=== PATIENT | female | born 1985 | race Caucasian/White ===

== ENCOUNTER 2020-05-11 12:14 | Outpatient (REF) | payer OTHER, SELFPAY | END 2020-05-11 12:15 | disposition home or self-care (01) | LOC: HO.MDS 12:14 | PROVIDERS: PCP Internal Medicine; Visit Provider Psychiatry & Neurology Neurology | DX: G35 Multiple sclerosis (principal) | CPT/HCPCS: 96365; J2930 ==

== ENCOUNTER 2020-05-12 13:12 | Outpatient (REF) | payer OTHER, SELFPAY | END 2020-05-12 13:13 | disposition home or self-care (01) | LOC: HO.MDS 13:12 | PROVIDERS: PCP Internal Medicine; Visit Provider Psychiatry & Neurology Neurology | DX: G35 Multiple sclerosis (principal) | CPT/HCPCS: 96365; J2930 ==

== ENCOUNTER 2020-05-13 13:39 | Outpatient (REF) | payer OTHER, SELFPAY | END 2020-05-13 13:40 | disposition home or self-care (01) | LOC: HO.MDS 13:39 | PROVIDERS: PCP Internal Medicine; Visit Provider Psychiatry & Neurology Neurology | DX: G35 Multiple sclerosis (principal) | CPT/HCPCS: 96365; J2930 ==

== ENCOUNTER 2021-05-26 08:52 | Outpatient (REF) | payer OTHER, SELFPAY ==
[2021-05-26 09:14] LABS: Hematocrit 42.3 % (37.0-47.0); Hemoglobin 13.6 g/dl (12.0-16.0); Mean Corpuscular HGB Conc 32.2 g/dl (31.0-35.0); Mean Corpuscular Hemoglobin 32.4 pg (27.0-33.0); Mean Corpuscular Volume 100.7 fL (80.0-98.0); Mean Platelet Volume 8.6 fL (9.4-12.3); Platelet Count 362 X10*3/uL (160-400); White Blood Count 8.7 X10*3/uL (4.8-10.8)
[2021-05-26 09:37] LABS: Alanine Aminotransferase 11 U/L (0-31); Albumin Level 4.4 g/dL (3.5-5.0); Alkaline Phosphatase 49 U/L (39-117); Aspartate Amino Transferase 11 U/L (5-31); Bilirubin Direct 0.2 mg/dL (0.0-0.5); Bilirubin Total 0.5 mg/dL (0.0-1.0); Total Protein 7.1 g/dL (6.5-8.0)
== END 2021-05-26 08:53 | disposition home or self-care (01) ==
LOC: HO.LAB 08:52
PROVIDERS: PCP Internal Medicine; Visit Provider Psychiatry & Neurology Neurology
DX: G35 Multiple sclerosis (principal)
CPT/HCPCS: 36415; 80076; 85027

== ENCOUNTER 2021-08-27 08:58 | Outpatient (REF) | payer OTHER, SELFPAY ==
[2021-08-27 09:21] LABS: MANUAL DIFF FLAG NO
[2021-08-27 09:47] LABS: Basophils Absolute Auto 0.1 X10*3/uL (0.0-0.2); Basophils Percent Auto 0.5 % (0-2); Eosinophils Absolute Auto 0.1 X10*3/uL (0.0-0.4); Eosinophils Percent Auto 0.9 % (0-4); Hematocrit 39.7 % (37.0-47.0); Hemoglobin 12.5 g/dl (12.0-16.0); Imm Gran Abs Auto 0.03 X10*3/uL (0.00-0.03); Imm Gran Pct Auto 0.3 % (0.0-0.4); Lymphocytes Absolute Auto 1.7 X10*3/uL (1.2-4.9); Lymphocytes Percent Auto 17.2 % (20-40); Mean Corpuscular HGB Conc 31.5 g/dl (31.0-35.0); Mean Corpuscular Hemoglobin 31.3 pg (27.0-33.0); Mean Corpuscular Volume 99.5 fL (80.0-98.0); Mean Platelet Volume 8.5 fL (9.4-12.3); Monocytes Absolute Auto 0.7 X10*3/uL (0.1-1.2); Monocytes Percent Auto 6.6 % (2-11); Neutrophils Absolute Auto 7.5 x10*3/uL (2.0-8.3); Neutrophils Percent Auto 74.5 % (45-73); Platelet Count 455 X10*3/uL (160-400); Red Blood Count 3.99 X10*6/uL (4.20-5.50); Red Cell Distribution Width 13.5 % (11.0-16.0)
[2021-08-27 10:24] LABS: Alanine Aminotransferase 13 U/L (0-31); Albumin Level 4.5 g/dL (3.5-5.0); Alkaline Phosphatase 59 U/L (39-117); Anion Gap 15 (12-20); Aspartate Amino Transferase 13 U/L (5-31); Bilirubin Direct < 0.2 mg/dL (0.0-0.5); Bilirubin Total 0.3 mg/dL (0.0-1.0); Blood Urea Nitrogen 12 mg/dL (9-16); Calcium 10.3 mg/dL (8.4-10.2); Carbon Dioxide 25 mmol/L (22-29); Chloride 105 mmol/L (96-108); Estimated Glomerular Filt Rate > 60; Glucose Random 88 mg/dL (60-115); Potassium 4.6 mmol/L (3.3-5.1); Sodium 140 mmol/L (135-145); Total Protein 7.2 g/dL (6.5-8.0)
[2021-09-03 01:20] LABS: JCV Antibody POSITIVE; JCV Index Value 2.05
== END 2021-08-27 08:59 | disposition home or self-care (01) ==
LOC: HO.LAB 08:58
PROVIDERS: PCP Internal Medicine; Visit Provider Psychiatry & Neurology Neurology
DX: G35 Multiple sclerosis (principal)
CPT/HCPCS: 36415; 80048; 80076; 85025; 86711

== ENCOUNTER 2021-09-01 11:33 | Outpatient (REF) | payer OTHER, SELFPAY | END 2021-09-01 11:34 | disposition home or self-care (01) | LOC: HO.MDS 11:33 | PROVIDERS: PCP Internal Medicine; Visit Provider Psychiatry & Neurology Neurology | DX: G35 Multiple sclerosis (principal) | CPT/HCPCS: 96365; J2930 ==

== ENCOUNTER 2021-09-02 11:20 | Outpatient (REF) | payer OTHER, SELFPAY | END 2021-09-02 11:21 | disposition home or self-care (01) | LOC: HO.MDS 11:20 | PROVIDERS: PCP Internal Medicine; Visit Provider Psychiatry & Neurology Neurology | DX: G35 Multiple sclerosis (principal) | CPT/HCPCS: 96365; J2930 ==

== ENCOUNTER 2021-09-03 11:23 | Outpatient (REF) | payer OTHER, SELFPAY | END 2021-09-03 11:24 | disposition home or self-care (01) | LOC: HO.MDS 11:23 | PROVIDERS: PCP Internal Medicine; Visit Provider Psychiatry & Neurology Neurology | DX: G35 Multiple sclerosis (principal) | CPT/HCPCS: 96365; J2930 ==

== ENCOUNTER 2021-09-06 08:39 | Outpatient (REF) | payer OTHER, SELFPAY ==
--- NOTE | ~2021-09-06 | MR_ITS ---
MR BRAIN WITHOUT AND WITH CONTRAST CLINICAL INFORMATION: Multiple sclerosis. COMPARISON: None available. TECHNIQUE: Multiplanar, multisequence MRI of the brain was obtained before and after the intravenous administration of 10 mL of Gadavist. FINDINGS: Extensive T2 signal hyperintense lesional burden throughout the supratentorial periventricular white matter, subcortical white matter, the corpus callosum, and the infratentorial brain in keeping with the sequela of demyelinating disease. A slightly expansile T2 signal hyperintense lesion within the right middle cerebellar peduncle measuring 8 mm exhibits faint peripheral enhancement, likely a active demyelinating focus. There is mild global cerebral volume loss. Multiple chronic low T1 signal intensity lesions. There is no hydrocephalus, extra-axial surface collection, or herniation. The major flow voids at the skull base are preserved. There is no acute infarct on diffusion-weighted imaging. There is no intracranial hemorrhage on the gradient recalled echo acquisition. The cerebellar tonsils are normally positioned. The craniocervical junction is normal. Osseous marrow signal intensity is homogenous. The visualized soft tissues are unremarkable. Right greater than left mastoid effusions. MR/MR head/brain wo/w con IMPRESSION: - Extensive T2 signal hyperintense lesional burden throughout the supratentorial periventricular white matter, subcortical white matter, the corpus callosum, and the infratentorial brain in keeping with the sequela of demyelinating disease. - A slightly expansile T2 signal hyperintense lesion within the right middle cerebellar peduncle measuring 8 mm exhibits faint peripheral enhancement, likely a active demyelinating focus. - There is mild global cerebral volume loss.
== END 2021-09-06 08:40 | disposition home or self-care (01) ==
LOC: HO.MRI 08:39
PROVIDERS: Visit Provider Psychiatry & Neurology Neurology
DX: G35 Multiple sclerosis (principal)
CPT/HCPCS: 70553; A9585

== ENCOUNTER 2022-02-17 08:16 | Outpatient (REF) | payer OTHER, SELFPAY ==
[2022-02-17 09:04] LABS: Alanine Aminotransferase 18 U/L (0-31); Albumin Level 4.2 g/dL (3.5-5.0); Alkaline Phosphatase 70 U/L (39-117); Aspartate Amino Transferase 14 U/L (5-31); Bilirubin Direct < 0.2 mg/dL (0.0-0.5); Bilirubin Total 0.2 mg/dL (0.0-1.0); Total Protein 6.9 g/dL (6.5-8.0)
== END 2022-02-17 08:17 | disposition home or self-care (01) ==
LOC: HO.LAB 08:16
PROVIDERS: PCP Internal Medicine; Visit Provider Psychiatry & Neurology Neurology
DX: G35 Multiple sclerosis (principal)
CPT/HCPCS: 36415; 80076

== ENCOUNTER 2022-07-28 08:04 | Outpatient (REF) | payer OTHER, SELFPAY ==
[2022-07-28 09:24] LABS: Alanine Aminotransferase 20 U/L (0-31); Albumin Level 4.3 g/dL (3.5-5.0); Alkaline Phosphatase 62 U/L (39-117); Aspartate Amino Transferase 15 U/L (5-31); Bilirubin Direct < 0.2 mg/dL (0.0-0.5); Bilirubin Total 0.3 mg/dL (0.0-1.0); Total Protein 6.8 g/dL (6.5-8.0)
[2022-08-04 03:18] LABS: JCV Antibody POSITIVE; JCV Index Value 1.84
== END 2022-07-28 08:05 | disposition home or self-care (01) ==
LOC: HO.LAB 08:04
PROVIDERS: PCP Internal Medicine; Visit Provider Psychiatry & Neurology Neurology
DX: G35 Multiple sclerosis (principal)
CPT/HCPCS: 36415; 80076; 86711

== ENCOUNTER 2022-08-01 08:04 | Outpatient (REF) | payer OTHER, SELFPAY ==
--- NOTE | ~2022-08-01 | MR_ITS ---
EXAMINATION: MR BRAIN WITHOUT AND WITH CONTRAST CLINICAL INFORMATION: Multiple sclerosis. COMPARISON: Brain MRI from 09/06/2021. TECHNIQUE: MRI of the brain was obtained using routine sequences without and with contrast using MS protocol following the administration of 10 mL of Gadavist intravenous contrast. This included a sagittal T2 FLAIR sequence. FINDINGS: There are multiple T2/FLAIR hyperintense lesions consistent with an underlying diagnosis of demyelination. This includes lesions within the subcortical, deep white matter, periventricular, callosal, brainstem, and cerebellar distributions. New Lesions: None. Enhancing Lesions: None. Restricted Diffusion: None. T1 Black Holes: Approximately 10. Volume Loss: Mild to moderate. Additional Findings: No evidence of edema or expansion of the optic nerves. No focal restricted diffusion is seen to suggest acute or subacute cerebral ischemia. No intracranial mass, intra-axial blood products, midline shift, or extra-axial collection is demonstrated. Proportional prominence of the ventricles and sulcal spaces without evidence of obstructive hydrocephalus. Normal arterial and venous vascular flow voids are present. No signal abnormalities within the superior sagittal or transverse sinuses. Mild mucosal thickening of the paranasal sinuses. Mild rightward nasal septal deviation. Small bilateral mastoid effusions. MR/MR head/brain wo/w con IMPRESSION: Stable moderate supratentorial and infratentorial white matter disease consistent with an underlying diagnosis of demyelination in the appropriate clinical setting. No evidence of disease progression.
== END 2022-08-01 08:05 | disposition home or self-care (01) ==
LOC: HO.MRI 08:04
PROVIDERS: PCP Internal Medicine; Visit Provider Psychiatry & Neurology Neurology
DX: G35 Multiple sclerosis (principal)
CPT/HCPCS: 70553; A9585

== ENCOUNTER 2023-01-18 10:27 | Outpatient (REF) | payer OTHER, SELFPAY ==
[2023-01-18 12:08] LABS: Alanine Aminotransferase 17 U/L (0-31); Albumin Level 4.4 g/dL (3.5-5.0); Alkaline Phosphatase 65 U/L (39-117); Aspartate Amino Transferase 16 U/L (5-31); Bilirubin Direct < 0.2 mg/dL (0.0-0.5); Bilirubin Total 0.2 mg/dL (0.0-1.0); Total Protein 7.3 g/dL (6.5-8.0)
== END 2023-01-18 10:28 | disposition home or self-care (01) ==
LOC: HO.LAB 10:27
PROVIDERS: PCP Internal Medicine; Visit Provider Psychiatry & Neurology Neurology
DX: G35 Multiple sclerosis (principal)
CPT/HCPCS: 36415; 80076

== ENCOUNTER 2023-04-17 08:26 | Outpatient (REF) | payer OTHER, SELFPAY ==
[2023-04-17 09:54] LABS: Alanine Aminotransferase 17 U/L (0-31); Albumin Level 4.2 g/dL (3.5-5.0); Alkaline Phosphatase 61 U/L (39-117); Aspartate Amino Transferase 14 U/L (5-31); Bilirubin Direct 0.1 mg/dL (0.0-0.5); Bilirubin Total 0.3 mg/dL (0.0-1.0); Total Protein 7.1 g/dL (6.5-8.0)
== END 2023-04-17 08:27 | disposition home or self-care (01) ==
LOC: HO.LAB 08:26
PROVIDERS: PCP Internal Medicine; Visit Provider Psychiatry & Neurology Neurology
DX: G35 Multiple sclerosis (principal)
CPT/HCPCS: 36415; 80076

== ENCOUNTER 2023-07-10 08:05 | Outpatient (REF) | payer SELFPAY ==
[2023-07-10 09:45] LABS: Alanine Aminotransferase 19 U/L (0-31); Albumin Level 4.2 g/dL (3.5-5.0); Alkaline Phosphatase 59 U/L (39-117); Aspartate Amino Transferase 15 U/L (5-31); Bilirubin Direct 0.1 mg/dL (0.0-0.5); Bilirubin Total 0.3 mg/dL (0.0-1.0)
== END 2023-07-10 08:06 | disposition home or self-care (01) ==
LOC: HO.LAB 08:05
PROVIDERS: PCP Internal Medicine; Visit Provider Psychiatry & Neurology Neurology
DX: G35 Multiple sclerosis (principal)
CPT/HCPCS: 36415; 80076

== ENCOUNTER 2023-10-16 09:48 | Outpatient (REF) | payer OTHER, SELFPAY ==
[2023-10-16 11:13] LABS: Alanine Aminotransferase 61 U/L (0-31); Albumin Level 4.2 g/dL (3.5-5.0); Alkaline Phosphatase 59 U/L (39-117); Aspartate Amino Transferase 29 U/L (5-31); Bilirubin Direct 0.1 mg/dL (0.0-0.5); Bilirubin Total 0.4 mg/dL (0.0-1.0)
== END 2023-10-16 09:49 | disposition home or self-care (01) ==
LOC: HO.LAB 09:48
PROVIDERS: Visit Provider Psychiatry & Neurology Neurology
DX: G35 Multiple sclerosis (principal)
CPT/HCPCS: 36415; 80076

== ENCOUNTER 2024-03-11 09:25 | Outpatient (REF) | payer OTHER, SELFPAY ==
[2024-03-11 09:43] LABS: MANUAL DIFF FLAG NO
[2024-03-11 10:14] LABS: Basophils Absolute Auto 0.1 X10*3/uL (0.0-0.2); Basophils Percent Auto 0.8 % (0-2); Eosinophils Absolute Auto 0.2 X10*3/uL (0.0-0.4); Eosinophils Percent Auto 1.4 % (0-4); Hematocrit 43.5 % (37.0-47.0); Imm Gran Abs Auto 0.08 X10*3/uL (0.00-0.03); Imm Gran Pct Auto 0.7 % (0.0-0.4); Lymphocytes Percent Auto 42.3 % (20-40); Mean Corpuscular HGB Conc 32.2 g/dl (31.0-35.0); Mean Corpuscular Hemoglobin 31.7 pg (27.0-33.0); Mean Corpuscular Volume 98.6 fL (80.0-98.0); Mean Platelet Volume 9.3 fL (9.4-12.3); Monocytes Absolute Auto 0.8 X10*3/uL (0.1-1.2); Monocytes Percent Auto 7.1 % (2-11); Neutrophils Absolute Auto 5.6 x10*3/uL (2.0-8.3); Neutrophils Percent Auto 47.7 % (45-73); Platelet Count 270 X10*3/uL (160-400); Red Blood Count 4.41 X10*6/uL (4.20-5.50); Red Cell Distribution Width 13.5 % (11.0-16.0); White Blood Count 11.8 X10*3/uL (4.8-10.8)
[2024-03-11 10:25] LABS: NRBC Pct Auto 1.8 /100WBC (0.0-0.2)
== END 2024-03-11 09:26 | disposition home or self-care (01) ==
LOC: HO.LAB 09:25
PROVIDERS: PCP Internal Medicine; Visit Provider Psychiatry & Neurology Neurology
DX: G35 Multiple sclerosis (principal)
CPT/HCPCS: 36415; 85025

== ENCOUNTER 2024-06-24 08:23 | Outpatient (REF) | payer OTHER, SELFPAY ==
[2024-06-24 08:51] LABS: Basophils Absolute Auto 0.1 X10*3/uL (0.0-0.2); Basophils Percent Auto 0.5 % (0-2); Eosinophils Absolute Auto 0.2 X10*3/uL (0.0-0.4); Eosinophils Percent Auto 1.3 % (0-4); Hematocrit 43.2 % (37.0-47.0); Hemoglobin 14.2 g/dl (12.0-16.0); Imm Gran Abs Auto 0.07 X10*3/uL (0.00-0.03); Imm Gran Pct Auto 0.6 % (0.0-0.4); Lymphocytes Absolute Auto 4.6 X10*3/uL (1.2-4.9); Lymphocytes Percent Auto 40.2 % (20-40); MANUAL DIFF FLAG SCAN; Mean Corpuscular HGB Conc 32.9 g/dl (31.0-35.0); Mean Corpuscular Hemoglobin 32.6 pg (27.0-33.0); Mean Corpuscular Volume 99.1 fL (80.0-98.0); Mean Platelet Volume 9.3 fL (9.4-12.3); Monocytes Absolute Auto 0.6 X10*3/uL (0.1-1.2); Monocytes Percent Auto 5.5 % (2-11); Neutrophils Percent Auto 51.9 % (45-73); Platelet Count 242 X10*3/uL (160-400); Red Blood Count 4.36 X10*6/uL (4.20-5.50); Red Cell Distribution Width 13.8 % (11.0-16.0); SCAN SMEAR FLAG 1; White Blood Count 11.5 X10*3/uL (4.8-10.8)
[2024-06-24 08:56] LABS: NRBC Pct Auto 1.4 /100WBC (0.0-0.2)
[2024-06-24 09:15] LABS: SLIDE REVIEW VERIFIED
[2024-06-24 09:55] LABS: Alanine Aminotransferase 42 U/L (0-31); Albumin Level 4.2 g/dL (3.5-5.0); Alkaline Phosphatase 59 U/L (39-117); Aspartate Amino Transferase 21 U/L (5-31); Bilirubin Direct 0.1 mg/dL (0.0-0.5); Bilirubin Total 0.3 mg/dL (0.0-1.0); Total Protein 7.1 g/dL (6.5-8.0)
--- OUTSIDE RECORDS SUMMARY | 2024-06-24 12:42 | XMS_ITS | Clinical Summary ---
Author Organization [address] [facility] Address [address] [place] [address] Phone Care Team Providers Care Sand Digger Name Role Phone Nathan Flores MD Primary Care Provider [phone] Allergies Active Allergy Reactions Criticality Noted Date Comments Acetaminophen-Codeine Other Medium 10/22/2019 Divalproex Flushing 09/08/2010 Dog Dander Runny nose 08/09/2007 Other Runny nose 08/09/2007 Risperidone 12/30/2021 Medications Medication Sig Dispensed Refills Start Date End Date Status natalizumab (Tysabri) 300 mg/15 mL injection Infuse 1 mL (20 mg total) into a venous catheter. 12/30/2021 Active oxyBUTYnin XL (DITROPAN-XL) 10 mg 24 hr tablet Take 1 tablet (10 mg total) by mouth 1 (one) time each day. 08/26/2022 Active ibuprofen (ADVIL,MOTRIN) 800 mg tablet Take 1 tablet (800 mg total) by mouth. 12/26/2022 Active nystatin (MYCOSTATIN) 100,000 unit/gram powder Apply topically. Apply to affected area four times daily for 10 days Active atorvastatin (LIPITOR) 10 mg tablet Take 1 tablet (10 mg total) by mouth 1 (one) time each day. 90 tablet 1 05/07/2024 Active cyclobenzaprine (FLEXERIL) 10 mg tablet Take 1 tablet (10 mg total) by mouth at bedtime as needed for muscle spasms. 90 tablet 1 05/07/2024 Active clotrimazole (LOTRIMIN) 1 % cream Apply to skin and toenails daily for 12 weeks 30 g 2 05/07/2024 Active ketoconazole (NIZORAL) 2 % shampoo Apply topically 1 (one) time per week. 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 Chronic for about 5 years. UA urine culture and renal function normal. History of MS and follows with neurology. Patient to follow-up with neurology. If neurology feels unrelated to MS will consider urology consult. Multiple sclerosis 08/02/2019 Overview (02/27/2024): Follows with neurology ([facility]) on 6 mth basis Vitamin D deficiency 05/14/2019 Obese 05/09/2014 Bipolar affective disorder 09/08/2010 Overview (02/27/2024): On meds Had ECT with good resuts Encounters Date Type Department Care Team Description 06/13/2024 Telephone Adult Medicine [address] [phone] Nalini Hale PA fyi (Pt is calling back wonderint what is going on with her medication she has yet to hear anything ) 05/13/2024 Telephone Adult Medicine [address] [phone] Nathan Flores MD Medication Problem 05/07/2024 9:30 AM EST Office Visit Adult Medicine [address] [phone] Nalini Hale PA Multiple sclerosis ([facility]) (Primary Dx); Hypercholesterolemia; Chronic low back pain, unspecified back pain laterality, unspecified whether sciatica present; Scalp psoriasis; Tinea pedis, unspecified laterality 04/04/2024 2:00 PM EST Office Visit Orthopedic Surgery [address] [phone] Joe Haynes DPM Dermatophytosis of nail (Primary Dx); Ingrowing nail from Last 3 Months Immunizations Name Administration Dates Next Due HPV, Quadrivalent 03/08/2007 Influenza Quadravalent, MDCK , 0.5ml, preservative free (Flucelvax) 6mo and older 05/13/2019 PPD Test 05/13/2019 Tdap Tetanus diptheria acell ular pertussis (Boostrix; Adacel) 7yo and older 05/13/2019,02/15/2007 Surgical History Surgery Date Site/Laterality Comments OTHER SURGICAL HISTORY PROCEDURE: DENIES PREVIOUS SURGERY Medical History Medical History Date Comments Other specified personal his tory presenting hazards to health(V15.89) DX:Other specifie d personal history presenting hazards to health(V15.89); COMMENT: destiny 1 Bipolar affective disorder ([facility]) DX:Bipolar affective disorder (HCC); COMMENT: hosptialized in 2010 Multiple sclerosis ([facility]) 08/02/2019 DX: Multiple sclerosis ([facility]); COMMENT: Follows with neurology ([facility]) on 6 mth basis Tubular adenoma of colon DX:Tubu lar adenoma of colon; COMMENT: Mother noted to have several and needed colon resection at 49 Hypercholesterolemia 05/07/2024 Family History Medical History Relation Name Comments Breast cancer Aunt Multiple sclerosis Aunt Hypertension Maternal Grandmother Diabete s Colon cancer Mother mother had pr e-cancer but had colectomy Relation Name Status Comments Aunt Alive pat Maternal Grandmother Mother Alive Social History Tobacco Use Types Packs/Day Years Used Date Smoking Tobacco: Every Day Cigarettes Smokeless Tobacco: Never Tobacco Cessation:Ready to Q uit: Not Asked; Counseling Given: Not Answered Alcohol Use Standard Drinks/Week Comments Not Currently 0 (1 standard drink = 0.6 oz pur e alcohol) Sex and Gender Information Value Date Recorded Sex Assigned at Not on file Gender Identity Not on file Sexual Orientation Not on file Job Start Date Occupation Industry Not on file Not on file Not on file Obstetrics History Last Filed Vital Signs Vital Sign Reading Time Taken Comments Blood Pressure 109/85 06/12/2024 10:45 AM EST Pulse 94 06/12/2024 10:45 AM EST Temperature 36.3 ??C (97.3 ??F) 06/12/2024 10:[address] Respiratory Rate 18 06/12/2024 10:45 AM EST Oxygen Saturation 98% 05/07/2024 9:46 AM EST Inhaled Oxygen Concentration - - Weight 95.7 kg (211 lb) 06/12/2024 10:45 AM EST Height 165.1 cm (5' 5 ) 05/07/2024 9:46 AM EST Body Mass Index 35.11 05/07/2024 9:46 AM EST Plan of Treatment Upcoming Encounters Date Type Department Care Team (Late st Contact Info) Description 07/08/2024 2:00 PM EST Office Visit Orthopedic Surgery - [place] [phone] [phone] Joe Haynes, DPM [address] [address] 11/18/2024 9:30 AM EDT Office Visit Adult Medicine [address] [phone] Nathan Flores MD [address] [place] [phone] Health Maintenance Due Date Last Done Comments Pneumococcal Vaccine: Pediatrics (0 to 5 Years) and At-Risk Patients (6 to 64 Years) (1 of 2 - PCV) 1990 Hepatitis A Vaccines (1 of 2 - Risk 2-dose series) 10/30/2003 Hepatitis B Vaccines (1 of 3 - 19+ 3-dose series) 10/30/2003 HPV Vaccines (2 - 3-dose series) 04/05/2007 03/08/2007 Depression Screening 05/07/2022 HIV Screening 05/07/2022 Hepatitis C Screening 05/07/2022 Medicare Annual Wellness Visit 05/07/2022 Social Influencers of Health Screening 05/07/2022 COVID-19 Vaccine (1 - 2023-2 5 season) 2024 Influenza Vaccine (#1) 2024 05/13/2019 Colorectal Cancer Screening: Colonoscopy 05/05/2025 Cervical Cancer Screening: HPV 08/17/2027 08/16/2022 Cholesterol Screening (Lipid Panel) 11/01/2028 11/02/2023, 11/02/2023 DTaP,Tdap,and Td Vaccines (3 - Td or Tdap) 05/13/2029 05/13/2019, 02/15/2007 HIB Vaccines Aged Out No longer eligi ble based on patient's age to complete this topic IPV Vaccines Aged Out No longer eligi ble based on patient's age to complete this topic MMR Vaccines Aged Out No longer eligi ble based on patient's age to complete this topic Meningococcal ACWY Vaccine Aged Out N o longer eligible based on patient's age to complete this topic RSV Immunization Patients Under 20 months Aged Out No longer eligible b ased on patient's age to complete this topic Varicella Vaccines Aged Out No longer eligible based on patient's age to complete this topic Procedures Procedure Name Priority Date/Time Associated Diagnosis Comments LIPID PANEL Routine 11/02/2023 HPV Routine 08/16/2022 from Last 3 Months or Most Recently Relevant to Health Maintenance Results * (ABNORMAL) Lipid panel (11/02/2023) [facility] LDL/HDL Ratio 5(A) 0 - 4 Triglycerides 101 0 - 150 mg/dL Cholesterol 163 0 - 200 mg/dL HDL 36(A) 40 mg/dL LDL Cholesterol 107(A) 0 - 100 mg/dL Blood Venous blood specimen / Unknown Historical Provider LAB BLOOD ORDERAB [facility] * Cervical Cancer Screening: HPV (08/16/2022) Pathologist [facility] Cervical Cancer Screening: HPV Negative abstracted Historical Provider MD SIMI Hooks from Last 3 Months or Most Recently Relevant to Health Maintenance Advance Directives Documents on File Type Date Recorded 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
--- OUTSIDE RECORDS SUMMARY | 2024-06-24 12:42 | XMS_ITS | Encounter Summary ---
Author Organization [facility] Address [id number] [place] [phone] Care Team Providers Care Group Exercise Manager Name Role Phone Nathan Flores MD Primary Care Provider [phone] Reason for Visit * Reason Onset Date Comments fyi 06/13/2024 Pt is calling ba serena wonderint what is going on with her medication she has yet to hear anything Encounter Details Date Type Department Care Team (Late st Contact Info) Description 06/13/2024 Telephone Adult Medicine [address] [phone] Nalini Hale PA [address] [place] [phone] (Pt is calling back wonderint what is going on with her medication she has yet to hear anything ) Social History Tobacco Use Types Packs/Day Years Used Date Smoking Tobacco: Every Day Cigarettes Smokeless Tobacco: Never Alcohol Use Standard Drinks/Week Comments Not Currently 0 (1 standard drink = 0.6 oz pur e alcohol) Sex and Gender Information Value Date Recorded Sex Assigned at Not on file Gender Identity Not on file Sexual Orientation Not on file Job Start Date Occupation Industry Not on file Not on file Not on file documented as of this encounter Progress Notes * Anna Pitt - 06/13/2024 3:14 PM EST Patient is calling to let Nalini MCCRACKEN know that her [employer] is requiring a prior auth for medication methocarbamoL. States [employer] is faxing over information to Nalini's attention. Patient just wanted to make Nalini aware that this information would be coming to her. documented in this encounter Plan of Treatment Upcoming Encounters Date Type Department Care Team (Late st Contact Info) Description 07/08/2024 2:00 PM EST Office Visit Orthopedic Surgery - [place] [address] [phone] Joe Haynes, DPM [address] [address] 11/18/2024 9:30 AM EDT Office Visit Adult Medicine [address] [phone] Nathan Flores MD [address] [place] [address] documented as of this encounter Visit Diagnoses Not on filedocumented in this encounter Care Teams Group Exercise Manager Relationship Specialty Start Date End Date Nathan Flores MD [address] [place] [phone] PCP - General Internal Medicine 01/30/07 documented as of this encounter
--- OUTSIDE RECORDS SUMMARY | 2024-06-24 12:42 | XMS_ITS | Encounter Summary ---
Author Organization [facility] Address [address] [place] [phone] Care Team Providers Care Material Handling Equipment Stevedore Name Role Phone Nathan Flores MD Primary Care Provider [phone] Reason for Visit * Reason Onset Date Comments Medication Problem 05/13/2024 Encounter Details Date Type Department Care Team ([facility] st Contact Info) Description 05/13/2024 Telephone Adult Medicine [facility] [address] [place] [phone] Nathan Flores MD [address] [place] [phone] Medication Problem Social History Tobacco Use Types Packs/Day Years [...] as of this encounter Progress Notes * Joy Díaz RN - 06/11/2024 12:54 PM EST Spoke with pt. And pt.'s mother who is on verbal release. Mother says pt. Has had this mid back pain x 1 1/2 years and PCP is aware. She is on methocarbamol which works well . Her insurance sent letter letting her know they are no longer covering this medication. She was prescribed flexeril which does not work as well . She has gone back to Robaxin but will need another rx and would like to request this medication as necessary due the other medication not working. Pt. Has tried other medications none of which work. Appointment for tomorrow to re- evaluate back pain and possible PA * Verenice Clinton - 06/11/2024 12:02 PM EST Patient was having this pain over a month ago, no further communication was regarding this request.Please contact patient to see if they remain with discomfort and still looking for a medication change may need appointment if pain is persistent. * Sammi Bobo - 05/13/2024 8:54 AM EST Medication Problem: What is the name of the medication patient is having a problem with?: cyclobenzaprine What is the problem?: not working for back pain- asking for methocarbaonla Who is calling about the problem? : The patient Is this a NEW medication?: yes How long has the patient been taking this medication? N/a Who prescribed this medication for the patient? Nalini Hale Who is patients PCP?: Nathan Flores MD Payor: [facility] MED[facility] / Plan: [facility] ONE CARE / Product Type: *No Product type* / documented in this encounter Plan of Treatment Upcoming Encounters Date Type Department Care Team (Late st Contact Info) Description 07/08/2024 2:00 PM EST Office Visit Orthopedic Surgery - [place] [address] [phone] Joe Haynes DPM [address] [phone] 11/18/2024 9:30 AM EDT Office Visit Adult Medicine [address] [phone] Nathan Flores MD [address] [place] [phone] documented as of this encounter Visit Diagnoses Not on filedocumented in this encounter Care Teams Material Handling Equipment Stevedore Relationship Specialty Start Date End Date Nathan Flores MD [address] [place] [phone] PCP - General Internal Medicine 01/30/07 documented as of this encounter
[2024-06-28 04:18] LABS: JCV Antibody POSITIVE; JCV Index Value 2.27 index
== END 2024-06-24 08:24 | disposition home or self-care (01) ==
LOC: HO.LAB 08:23
PROVIDERS: Psychiatry & Neurology Neurology; PCP Internal Medicine; Visit Provider Internal Medicine
DX: G35 Multiple sclerosis (principal)
CPT/HCPCS: 36415; 80076; 85025; 86711

== ENCOUNTER 2024-10-01 10:28 | Outpatient (REF) | payer OTHER, SELFPAY ==
--- NOTE | ~2024-10-01 | MR_ITS ---
EXAMINATION: MR BRAIN WITHOUT AND WITH CONTRAST CLINICAL INFORMATION: Multiple sclerosis. COMPARISON: August 01, 2022. TECHNIQUE: Multiplanar, multisequence MRI of the brain was obtained before and after the intravenous administration of 10 mL gadolinium based (Gadavist) without reported immediate complications. FINDINGS: Limited by patient's motion artifact. No restricted diffusion. There is T2 shortening through involving the perpendicular oriented to the corpus callosum deep periventricular white matter hyperintense T2 FLAIR signal abnormalities at the supratentorial compartment both hemispheres. There is hyperintense T2 FLAIR nonenhancing no restricted diffusion within the right cerebellar peduncle, dorsal camila/quadrigeminal plate/mid brain and left midline ventral camila. There is hyperintense T2 FLAIR signal at the entry zone of the right trigeminal cranial nerves. No abnormal enhancement within the intra-axial or the extra-axial compartment of the cranium or within the white matter plaques. Multifocal hyperintense T2 signal abnormalities within the right cerebellum the cerebellar peduncles. Prominence of the extra-axial CSF spaces cerebral sulci and ventricles. Flow-void signal within the main cerebral vessels is normal. Sellar/suprasellar region demonstrated no gross masses. Craniocervical junction is intact and normal. MR/MR head/brain wo/w con IMPRESSION: Extensive nonenhancing no restricted diffusion demyelinating plaques involving the supratentorial and infratentorial compartment with similar morphology and distribution pattern since 2022. Electronically signed by: Epifanio Beth MD 10/01/2024 01:37 PM EDT
[2024-10-01] MEDS: gadobutroL 10 ML VIAL IVPUSH (11:53)
--- OUTSIDE RECORDS SUMMARY | 2024-10-01 12:04 | XMS_ITS | Clinical Summary ---
Author Organization [facility] Address [address] [place] [address] Phone Care Team Providers Care Geospatial Technician Name Role Phone Nathan Flores MD Primary Care Provider [phone] Allergies Active Allergy Reactions Criticality Noted Date Comments Acetaminophen-Codeine Other Medium 10/22/2019 Divalproex Flushing 09/08/2010 Dog Dander Runny nose 08/09/2007 Other Runny nose 08/09/2007 Risperidone 12/30/2021 Medications natalizumab (Tysabri) 300 mg/15 mL injection Infuse 1 mL (20 mg total) into a venous catheter. 12/31/19 22 Active oxyBUTYnin XL (DITROPAN-XL) 10 mg 24 hr tablet Take 1 tablet (10 mg total) by mouth 1 (one) time each day. 08/27/19 23 Active ibuprofen (ADVIL,MOTRIN) 800 mg tablet Take 1 tablet (800 mg total) by mouth. 12/27/19 23 Active nystatin (MYCOSTATIN) 100,000 unit/gram powder Apply topically. Apply to affected area four times daily for 10 days Active atorvastatin (LIPITOR) 10 mg tablet Take 1 tablet (10 mg total) by mouth 1 (one) time each day. 90 tablet 1 05/07/20 24 Active clotrimazole (LOTRIMIN) 1 % cream Apply to skin and toenails daily for 12 weeks 30 g 2 05/07/20 24 Active ketoconazole (NIZORAL) 2 % shampoo Apply topically 1 (one) time per week. Apply to damp skin, lather, leave on 5 minutes, and rinse 120 mL 2 05/07/20 24 Active methocarbamoL (ROBAXIN) 750 mg tablet Take 1 tablet (750 mg total) by mouth at bedtime as needed for muscle spasms. 90 tablet 09/05/19 25 Active methocarbamoL (ROBAXIN) 750 mg tabletIndicatio ns:Chronic low back pain, unspecified back pain laterality, unspecified whether sciatica present Take 1 tablet (750 mg total) by mouth 3 (three) times a day if needed for muscle spasms. 90 each 09/06/19 25 Active cyclobenzaprine (FLEXERIL) 10 mg tablet Take 1 tablet (10 mg total) by mouth 3 (three) times a day if needed for muscle spasms. 30 tablet 09/26/19 25 025 Active methocarbamoL (ROBAXIN) 750 mg tablet Take 1 tablet (750 mg total) by mouth 3 (three) times a day if needed for muscle spasms. 90 each 07/05/19 25 025 Discontinued Active Problems Problem Noted Date Diagnosed Date Hypercholesterolemia 05/07/2024 Chronic low back pain 05/07/2024 Scalp psoriasis 05/07/2024 Tubular adenoma of colon 02/27/2024 Overview (02/27/2024): Mother noted to have several and needed colon resection at 48 High grade squamous intraepi thelial lesion (HGSIL), grade 3 DESTINY, on biopsy of cervix 10/27/2021 Overview (02/27/2024): Last Assessment & Plan: 08/10/2021 Papsmear HSIL pos / neg 16/45 09/09/21 colpo bx at 11 at least [...] MS will consider urology consult. Multiple sclerosis ([facility] V24, [facility] V28) Overview (02/27/2024): Follows with neurology ([facility]) on 6 mth basis Vitamin D deficiency 05/14/2019 Obese 05/09/2014 Bipolar affective disorder ([facility] V24, [facility] V28) 09/08/2010 Overview (02/27/2024): On meds Had ECT with good resuts Encounters Date Type Department Care Team Description 09/23/2024 Telephone Adult Medicine [address] [phone] Nathan Flores MD Medication Problem 08/09/2024 Telephone Adult [address] [phone] Nathan Flores MD Medication Problem 07/30/2024 Telephone Adult Medicine [address] [phone] Monica Ocampo LPN Fitting for DME (Faxed form from Gianluca ) 07/30/2024 Telephone Adult [address] [phone] Nalini Hale PA Med Refill 07/25/[address] [phone] Nathan Flores MD 07/25/[address] [phone] Nathan Flores MD Forms/questionnaires 07/08/2024 2:00 PM EST Office Visit Orthopedic Surgery - [place] [address] [place] [phone] Joe Haynes, DPM Dermatophytosis of nail (Primary Dx); Ingrowing [...] health(V15.89); COMMENT: destiny 1 Bipolar affective disorder ( [facility] V24, [facility] V28) DX:Bipolar affective disorde r ([facility]); COMMENT: hosptialized in 2010 Multiple sclerosis ([facility] V24, [facility] V28) 08/02/2019 DX:Multiple sclerosis ([facility]); COMMENT: Follows with neurology ([facility]) on 6 [...] drink = 0.6 oz pur e alcohol) Comments No Sex and Gender Information Value Date Recorded Sex Assigned at Not on file Legal Sex Female 1:32 AM EST Gender Identity Not on file Sexual Orientation Not on file Obstetrics History Last Filed Vital Signs Vital Sign Reading Time Taken Comments Blood Pressure 109/85 06/12/2024 10:45 AM EST Pulse 94 06/12/2024 10:45 AM EST Temperature 36.3 ??C (97.3 ??F) 06/12/2024 10:[address] Respiratory Rate 18 06/12/2024 10:45 AM EST Oxygen Saturation 98% 05/07/2024 9:46 AM EST Inhaled Oxygen Concentration - - Weight 95.7 kg (211 lb) 07/08/2024 1:58 PM EST Height 165.1 cm (5' 5 ) 07/08/2024 1:58 PM EST Body Mass Index 35.11 07/08/2024 1:58 PM EST Plan of Treatment Upcoming Encounters Date Type Department Care Team (Late st Contact Info) Description 10/07/2024 1:45 PM EDT Office Visit Orthopedic Surgery - [place] [address] [phone] Joe Haynes, DPM [address] [phone] 11/18/2024 9:30 AM EDT Office Visit Adult Medicine [facility] [address] [place] [phone] Nathan Flores MD [address] [place] [address] Health Maintenance Due Date Last Done Comments Hepatitis B Vaccines (1 of 3 - 19+ 3-dose series) 10/30/2003 Pneumococcal Vaccine: Pediatrics (0 to 5 Years) and At-Risk Patients (6 to 64 Years) (1 of 2 - PCV) 10/30/2003 HPV Vaccines (2 - 3-dose series) 04/05/2007 03/08/2007 Depression Screening 05/07/2022 HIV Screening 05/07/2022 Hepatitis C Screening 05/07/2022 Medicare Annual Wellness Visit 05/07/2022 Social Influencers of Health Screening 05/07/2022 COVID-19 Vaccine ( - 2023-2 5 season) 2024 Influenza Vaccine (Season Ended) 2025 05/13/2019 Colorectal Cancer Screening: Colonoscopy 05/05/2025 Cervical Cancer Screening: HPV 08/17/2027 08/16/2022 Cholesterol Screening (Lipid Panel) 11/01/2028 11/02/2023, 11/02/2023 DTaP,Tdap,and Td Vaccines (3 - Td or Tdap) 05/13/2029 05/13/2019, 02/15/2007 HIB Vaccines Aged Out No longer eligi ble based on patient's age to complete this topic Hepatitis A Vaccines Aged Out No long er eligible based on patient's age to complete this topic IPV Vaccines Aged Out No longer eligi ble based on patient's age to complete this topic MMR Vaccines Aged Out No longer eligi ble based on patient's age to complete this topic Meningococcal ACWY Vaccine Aged Out N o longer eligible based on patient's age to complete this topic Meningococcal B Vaccine Aged Out No l onger eligible based on patient's age to complete [...] Maintenance Results * (ABNORMAL) Lipid panel (11/02/2023) LDL/HDL Ratio 5(A) 0 - 4 Triglycerides 101 0 - 150 mg/dL Cholesterol 163 0 - 200 mg/dL HDL 36(A) >=40 mg/dL LDL Cholesterol 107(A) 0 - 100 mg/dL Blood Venous blood specimen / Unknown Historical Provider LAB BLOOD ORDERABLES Inna l Result * Cervical Cancer Screening: HPV (08/16/2022) Cervical Cancer Screening: HPV Negative abstracted Historical Provider HEALTH MAINTENANCE Final Result from Last 3 Months or Most Recently Relevant to Health Maintenance Insurance [facility] MEDICARE Member Subscriber Plan / Payer (Ef fective 2023-Present) Name:Charlotte Vaughan Relation to Subscriber:Self Name:Charlotte Vaughan Payer ID:[id number] Group ID:[id number] Type:Not on file Address: [address] [place] [address] Advance Directives Documents on File Type Date Recorded Patient Inspector Circuitry Negative Expl anation Health Care Decision (hx) 01/24/2022 AD LEVY DIRECTIVE Health Care Decision (hx) 01/24/2022 AD LEVY DIRECTIVE Health Care Decision (hx) 01/24/2022 AD LEYV DIRECTIVE Health Care Decision (hx) 01/24/2022 AD LEVY DIRECTIVE Care Teams Geospatial Technician Relationship Specialty Start Date End Date Nathan Flores MD [address] [place] [phone] PCP - General Internal Medicine 01/30/07
== END 2024-10-01 10:29 | disposition home or self-care (01) ==
LOC: HO.MRI 10:28
PROVIDERS: PCP Internal Medicine; Visit Provider Psychiatry & Neurology Neurology
DX: G35 Multiple sclerosis (principal)
CPT/HCPCS: 70553; A9585

== ENCOUNTER → 2024-10-01 10:56 | Outpatient (BNV) | payer OTHER, SELFPAY | PROVIDERS: PCP Internal Medicine; Visit Provider Radiology Diagnostic Radiology | DX: G37.9 Demyelinating disease of central nervous system, unspecified (principal) | CPT/HCPCS: 70553 ==

== ENCOUNTER 2025-01-29 09:04 | Outpatient (AMB) | payer OTHER, SELFPAY ==
--- NOTE | 2025-01-29 09:14 | MHC.OFFVIS ---
Intake Visit Reasons: 3M Allergies codeine Allergy (Unknown, Verified 01/22/25 07:50) Unknown divalproex sodium (From DEPAKOTE) Allergy (Unknown, Unverified 02/13/20 16:43) SEIZURE Medication List - Last Reconciled 01/29/25 by Violeta Emerson MD atorvastatin 10 mg PO DAILY gabapentin 300 mg PO DAILY methocarbamol 500 mg PO BID natalizumab (Tysabri) 300 mg IV Q28D oxybutynin chloride ER 10 mg PO DAILY HPI Comments Details: 39 yo woman with remitting relapsing multiple sclerosis with progressive worsening of gait. MRI of brain in 2019 revealed extensive white matter lesions, many enhancing suggestive of relapsing MS. She was started on Tecfidera that was changed to Tysabari in September of 2021 due to further worsening of her physical status. She is presenting with ongoing bladder dysfunction. She currently uses oxybutynin for management. The patient reported difficulties controlling bladder function, relying on pull-ups. There was no additional history provided concerning onset or associated symptoms. She also reports chronic back pain which she manages with methocarbamol. Back pain occasionally affects her sleep, but otherwise, she reports sleeping well most of the time. Additionally, the patient is under medication for dyslipidemia, although the specific medication was not disclosed, she continues with a regular regimen as advised. Prior blood work indicated normal vitamin D levels, leading to cessation of vitamin D supplementation. [facility] Medical History (Updated 01/29/25 @ 09:16 by Violeta Emerson MD) Gait disorder Dementia Urinary incontinence Spastic bladder Multiple sclerosis Review of Systems Const Details: - Genitourinary: Reports bladder dysfunction and use of pull-ups. Describes use of oxybutynin. - Musculoskeletal: Reports back pain. - Sleep: Reports sleep disruption due to back pain, but otherwise sleeps well. Physical Exam Neuro Other: Mental Status: Alert and oriented to person, place, and time. Normal attention. Normal spontaneous speech, fluency, and comprehension. Cranial Nerves: CN II: Visual chand full to confrontation, visual acuity intact. CN III, IV, : Pupils equal, round, reactive to light and accommodation. Extraocular movements are normal. CN V: Facial sensation is normal. CN VII: Facial movements symmetrical. CN VIII: Hearing intact to bedside conversation is normal. CN IX, X: Palate elevates symmetrically. CN XI: Shoulder shrug and head turn symmetrical. CN XII: Tongue midline without atrophy or fasciculations. She is walking in a slow paced wide-based gait holding hands. Deep tendon reflexes are 1+. Extrapyramidal: Full facial expressions and blinking. No rigidity. Movements are appropriate with no tremor or abnormality. Speech: Normal; no dysarthria or tremor. Assessment & Plan Assessment & Plan (1) Multiple sclerosis: Comment: JCV titre at [facility] in 2021: 2.05, 2022: 1.84, 2024: 2.27 MRI brain WO at [facility] in September 2024: No change MRI brain WO at [facility] in Jul 2022: no new lesion MRI brain WWO at [facility] In Aug 2021: ext MS type disease with some enhancement MRI brain WO at [facility] in May 2019: extensive lesions suggestive of MS, many bright on DWI Code(s): G35 - Multiple sclerosis Category: Medical (2) Dementia: Code(s): F03.90 - Unspecified dementia, unspecified severity, without behavioral disturbance, psychotic disturbance, mood disturbance, and anxiety Category: Medical Qualifiers: Dementia type: associated with other underlying disease Dementia severity: moderate Dementia behavioral or psychological symptom: with other behavioral disturbance Qualified Code(s): F02.B18 - Dementia in other diseases classified elsewhere, moderate, with other behavioral disturbance (3) Spastic bladder: Code(s): N32.89 - Other specified disorders of bladder Category: Medical (4) Gait disorder: Code(s): R26.9 - Unspecified abnormalities of gait and mobility Category: Medical Plan Impression: a: Remitting relapsing MS, EDSS 5-6, moderate dementia b: Gait disorder due to MS c: Dementia related to MS d: Spastic bladder related to MS e: Chronic back pain Rec: a: Tysabri at [facility] infusion b: Oxybutynin ER 10mg daily c: Methocarbamol tab 500 mg 1-2 a day as needed Orders: Orders Liver Panel Today G35 - Multiple sclerosis Coding Level of Care Code Est Pt Level 5 (79255) Diagnoses Multiple sclerosis G35 Moderate dementia associated with other underlying disease, with other behavioral disturbance F02.B18 Dementia type: associated with other underlying disease Dementia severity: moderate Dementia behavioral or psychological symptom: with other behavioral disturbance Spastic bladder N32.89 Gait disorder R26.9
--- OUTSIDE RECORDS SUMMARY | 2025-01-29 09:44 | XMS_ITS ---
Author Name [facility] Organization Unknown Care Team Organization Name Specialty Phone Email Start Date End Da te [facility] NOY JUAN Primary Care 04/05/2022 4
--- OUTSIDE RECORDS SUMMARY | 2025-01-29 09:44 | XMS_ITS | Clinical Summary ---
Author Organization 175 [facility] Address [address] [place] [address] Phone Care Team Providers Care Biotechnologist Name Role Phone Nathan Flores MD Primary Care Provider [phone] Allergies Active Allergy Reactions Criticality Noted Date Comments Acetaminophen-Codeine Other Medium 10/22/2019 Codeine 10/07/2024 Divalproex Flushing 09/08/2010 Dog Dander Runny nose 08/09/2007 Other Runny nose 08/09/2007 Risperidone 12/30/2021 Medications natalizumab (Tysabri) 300 mg/15 mL injection Infuse 1 mL (20 mg total) into a venous catheter. 2 Active oxyBUTYnin XL (DITROPAN-XL) 10 mg 24 hr tablet Take 1 tablet (10 mg total) by mouth 1 (one) time each day. 3 Active ibuprofen (ADVIL,MOTRIN) 800 mg tablet Take 1 tablet (800 mg total) by mouth. 3 Active nystatin (MYCOSTATIN) 100,000 unit/gram powder Apply topically. Apply to affected area four times daily for 10 days Active clotrimazole (LOTRIMIN) 1 % cream Apply to skin and toenails daily for 12 weeks 30 g 2 4 Active ketoconazole (NIZORAL) 2 % shampoo Apply topically 1 (one) time per week. Apply to damp skin, lather, leave on 5 minutes, and rinse 120 mL 2 4 Active methocarbamoL (ROBAXIN) 750 mg tablet Take 1 tablet (750 mg total) by mouth at bedtime as needed for muscle spasms. 90 tablet 5 Active Additional Information Patient not taking.Reported on 11/18/2024 methocarbamoL (ROBAXIN) 750 mg tabletIndication s:Chronic low back pain, unspecified back pain laterality, unspecified whether sciatica present Take 1 tablet (750 mg total) by mouth 3 (three) times a day if needed for muscle spasms. 90 each Active cyclobenzaprine (FLEXERIL) 10 mg tablet Take 1 tablet (10 mg total) by mouth 3 (three) times a day if needed for muscle spasms. 30 tablet 5 Active Additional Information Patient not taking.Reported on 11/18/2024 atorvastatin (LIPITOR) 10 mg tablet TAKE 1 TABLET BY MOUTH 1 TIME EACH DAY. 90 tablet 1 5 Active Active Problems Problem Noted Date Diagnosed [...] MS will consider urology consult. Multiple sclerosis (CMS/HCC V24, CMS/HCC V28) Overview (02/27/2024): Follows with neurology (Ki) on 6 mth basis Vitamin D deficiency 05/14/2019 Obese 05/09/2014 Bipolar affective disorder ([facility] V24, [facility] V28) 09/08/2010 Overview (02/27/2024): On meds Had ECT with good resuts Encounters Date Type Department Care Team Description 11/18/2024 9:30 AM EDT Office Visit Adult Medicine [address] [phone] Nathan Flores MD Hypercholesterolemia (Primary Dx); Encounter for long-term (current) use of medications; Multiple sclerosis ([facility] V24, [facility] V28); Chronic low back pain without sciatica, unspecified back pain laterality; Neurogenic dysfunction of the urinary bladder 11/12/2024 Telephone Adult Medicine [address] [phone] Monica Ocampo LPN from Last 3 Months Immunizations Name Administration [...] COMMENT: destiny 1 Bipolar affective disorder ( [facility] V24, [facility] V28) DX:Bipolar affective disorde r ([facility]); COMMENT: hosptialized in 2010 Multiple sclerosis ([facility] V24, [facility] V28) 08/02/2019 DX:Multiple sclerosis ([facility]); COMMENT: Follows with neurology (Ki) on [...] Sign Reading Time Taken Comments Blood Pressure 118/76 11/18/2024 9:17 AM EDT Pulse 80 11/18/2024 9:17 AM EDT Temperature 36.6 C (97.8 F) 11/18/2024 9:17 AM EDT Respiratory Rate 14 11/18/2024 9:17 AM EDT Oxygen Saturation 99% 11/18/2024 9:17 AM EDT Inhaled Oxygen Concentration - - Weight 89.3 kg (196 lb 14.4 oz) 11/18/2024 9:17 AM EDT Height 165.1 cm (5' 5 ) 11/18/2024 9:17 AM EDT Body Mass Index 32.77 11/18/2024 9:17 AM EDT Plan of Treatment Upcoming Encounters Date Type Department Care Team (Late st Contact Info) Description 02/19/2025 1:00 PM EDT Office Visit Orthopedic Surgery - [place] [address] [phone] Joe Haynes, DPM [address] [phone] 06/13/2025 1:15 PM EST Office Visit Adult Medicine [address] [phone] Nathan Flores MD [address] [place] [address] Health Maintenance Due Date Last Done Comments Breast Cancer Screening 1984 Hepatitis B Vaccines (1 of 3 - 19+ 3-dose series) 10/30/2003 Pneumococcal Vaccine: Pediatrics (0 to 5 Years) and At-Risk Patients (6 to 49 Years) (1 of 2 - PCV) 10/30/2003 HPV Vaccines (2 - 3-dose series) 04/05/2007 03/08/2007 HIV Screening 05/07/2022 Hepatitis C Screening 05/07/2022 Medicare Annual Wellness Visit 05/07/2022 Social Influencers of Health Screening 05/07/2022 Depression Screening 05/29/2024 COVID-19 Vaccine (1 - 2023-2 5 season) 2025 Influenza Vaccine (#1) 2025 05/13/2019 Colorectal Cancer Screening: Colonoscopy 05/05/2025 Cervical Cancer Screening: HPV 08/17/2027 08/16/2022 DTaP,Tdap,and Td Vaccines (3 - Td or Tdap) 05/13/2029 05/13/2019, 02/15/2007 Cholesterol Screening (Lipid Panel) 11/25/2029 11/25/2024, 11/02/2023, 11/02/2023 HIB Vaccines Aged Out No longer eligi [...] Priority Date/Time Associated Diagnosis Comments LIPID PANEL WITH REFLEX TO DIRECT LDL Routine 11/25/2024 8:56 AM EDT Hypercholesterolemi a COMPREHENSIVE METABOLIC PANEL Routine 11/25/2024 8:56 AM EDT Encounter for long-term (current) use of medications HM HPV Routine 08/16/2022 from Last 3 Months or Most Recently Relevant to Health Maintenance Results * (ABNORMAL) Lipid panel with reflex to direct LDL (11/25/2024 8:56 AM EDT) Cholesterol 161 0 - 200 mg/dL LAB CHEMISTRY METHOD 11/25/2024 2:29 PM EDT [facility] Triglycerides 154(H) 0 - 150 mg/dL LAB CHEMISTRY METHOD 11/25/2024 2:29 PM EDT [facility] HDL 39(L) >=40 mg/dL LAB CHEMISTRY METHOD 11/25/2024 2:29 PM EDT [facility] LDL Calculated 91 0 - 100 mg/dL LAB CHEMISTRY METHOD 11/25/2024 2:29 PM EDT [facility] VLDL Cholesterol Ashwin 30.8 mg/dL LAB CHEMISTRY METHOD 11/25/2024 2:29 PM EDT [facility] Non HDL Chol. (LDL+VLDL) 122 <145 mg/dL LAB CHEMISTRY METHOD 11/25/2024 2:29 PM EDT [facility] Chol/HDL Ratio 4.1 0.0 - 4.4 LAB CHEMISTRY METHOD 11/25/2024 2:29 PM EDT [facility] Blood Venous blood specimen / Unknown Venipuncture / Unknown 11/25/2024 8:56 AM EDT 11/25/2024 8:56 AM EDT us Nathan Flores MD LAB BLOOD ORDERABLES Final Resu lt [facility] [address] [place] [address], * Comprehensive metabolic panel (11/25/2024 8:56 AM EDT) Pathologist [facility] Sodium 142 133 - 145 mmol/L LAB CHEMISTRY METHOD 11/25/2024 2:29 PM EDT [facility] Potassium 4.1 3.5 - 5.5 mmol/L LAB CHEMISTRY METHOD 11/25/2024 2:29 PM [facility] Chloride 108 96 - 110 mmol/L LAB CHEMISTRY METHOD 11/25/2024 2:29 PM [facility] CO2 25 21 - 32 mmol/L LAB CHEMISTRY METHOD 11/25/2024 2:29 PM [facility] Anion Gap 9 3 - 11 LAB CHEMISTRY METHOD 11/25/2024 2:29 PM [facility] Glucose 92 70 - 100 mg/dL LAB CHEMISTRY METHOD 11/25/2024 2:29 PM [facility] BUN 8 5 - 25 mg/dL LAB CHEMISTRY METHOD 11/25/2024 2:29 PM [facility] Creatinine 1.04 0.50 - 1.10 mg/dL LAB CHEMISTRY METHOD 11/25/2024 2:29 PM [facility] eGFR 70 >=60 mL/min/1. 73m2 LAB CHEMISTRY METHOD 11/25/2024 2:29 PM [facility] Comment:Calculation based on the Chronic Kidney Disease Epidemiology Collaboration (CKD-EPI) equation refit without adjustment for race. BUN/Creatinine Ratio 7.7 LAB CHEMISTRY METHOD 11/25/2024 2:29 PM [facility] Calcium 9.6 8.5 - 10.5 mg/dL LAB CHEMISTRY METHOD 11/25/2024 2:29 PM [facility] AST (SGOT) 17 10 - 42 unit/L LAB CHEMISTRY METHOD 11/25/2024 2:29 PM [facility] ALT (SGPT) 47 10 - 60 unit/L LAB CHEMISTRY METHOD 11/25/2024 2:29 PM [facility] Alkaline Phosphatase 72 42 - 121 unit/L LAB CHEMISTRY METHOD 11/25/2024 2:29 PM [facility] Total Protein 7.0 6.0 - 8.0 g/dL LAB CHEMISTRY METHOD 11/25/2024 2:29 PM EDT [facility] Albumin 3.9 3.2 - 5.0 g/dL LAB CHEMISTRY METHOD 11/25/2024 2:29 PM EDT [facility] Total Bilirubin 0.5 0.0 - 1.4 mg/dL LAB CHEMISTRY METHOD 11/25/2024 2:29 PM EDT [facility] Blood Venous blood specimen / Unknown Venipuncture / Unknown 11/25/2024 8:56 AM EDT 11/25/2024 8:56 AM EDT Nathan Flores MD LAB BLOOD ORDERABLES Final Resu lt [facility] [address] [place] [address], * Cervical Cancer Screening: HPV (08/16/2022) Pathologist [facility] [place] Cervical Cancer Screening: HPV Negative abstracted Daysi Provider HEALTH MAINTENANCE Final Result from Last 3 Months or Most Recently Relevant to Health Maintenance Insurance [facility] MED[facility] Member Subscriber Plan / Payer (Ef fective 2023-Present) Name:ANGELIKA VAUGHAN Relation to Subscriber:Self Name:Angelika Vaughan Payer ID:[id number] Group ID:[id number] Type:Not on file Address: [place] [address] [place] [id number] Advance Directives Documents on File Type Date Recorded Patient Microfilm Technician Expl anation Health Care Decision (hx) 01/24/2022 AD LEVY DIRECTIVE Health Care Decision (hx) 01/24/2022 AD LEVY DIRECTIVE Health Care Decision (hx) 01/24/2022 AD LEVY DIRECTIVE Health Care Decision (hx) 01/24/2022 AD LEVY DIRECTIVE Care Teams Biotechnologist Relationship Specialty Start Date End Date Nathan Flores MD [address] [place] [phone] PCP - General Internal Medicine 01/30/07
== END 2025-01-29 09:28 | disposition home or self-care (01) ==
LOC: HO.HSM 09:04
PROVIDERS: PCP Internal Medicine; Referring Provider Internal Medicine; Visit Provider Psychiatry & Neurology Neurology
DX: G35 Multiple sclerosis (principal); F02.B18 Dementia in other diseases classified elsewhere, moderate, with other behavioral disturbance; N32.89 Other specified disorders of bladder; R26.9 Unspecified abnormalities of gait and mobility
CPT/HCPCS: 99214

== ENCOUNTER → 2025-01-29 09:04 | Outpatient (BNVA) | payer OTHER, SELFPAY | PROVIDERS: PCP Internal Medicine; Referring Provider Internal Medicine; Visit Provider Psychiatry & Neurology Neurology | DX: G35 Multiple sclerosis (principal); F02.B18 Dementia in other diseases classified elsewhere, moderate, with other behavioral disturbance; N32.89 Other specified disorders of bladder; R26.9 Unspecified abnormalities of gait and mobility | CPT/HCPCS: 99212 ==

== ENCOUNTER 2025-02-10 09:03 | Outpatient (REF) | payer OTHER, SELFPAY ==
[2025-02-10 10:19] LABS: Alanine Aminotransferase 42 U/L (0-31); Albumin Level 4.5 g/dL (3.5-5.0); Alkaline Phosphatase 60 U/L (39-117); Aspartate Amino Transferase 24 U/L (5-31); Total Protein 7.0 g/dL (6.5-8.0)
--- OUTSIDE RECORDS SUMMARY | 2025-02-10 10:37 | XMS_ITS | Clinical Summary ---
Author Organization 175 [facility] Address [address] [place] [address] Phone Care Team Providers Care Machine Ii Coremaker Name Role Phone Nathan Flores MD Primary Care Provider [phone] Allergies Active Allergy Reactions Criticality Noted Date [...] deficiency 05/14/2019 Obese 05/09/2014 Bipolar affective disorder ([facility] V24, [facility] V28) 09/08/2010 Overview (02/27/2024): On meds Had ECT with good resuts Encounters Date Type Department Care Team Description 02/04/2025 Telephone Adult Medicine [address] [phone] Leelee Mike [place] 11/18/2024 9:30 AM EDT Office Visit Adult Medicine [address] [phone] Nathan Flores MD Hypercholesterolemia (Primary Dx); Encounter for long-term (current) use of medications; Multiple sclerosis ([facility] V24, [facility] V28); Chronic low back pain without sciatica, unspecified back pain laterality; Neurogenic dysfunction of the urinary bladder 11/12/2024 Telephone Adult Medicine [address] [phone] Monica Ocampo LPN from Last 3 Months [...] COMMENT: destiny 1 Bipolar affective disorder ( [facility] V24, [facility] V28) DX:Bipolar affective disorde r ([facility]); COMMENT: hosptialized in 2010 Multiple sclerosis ([facility] V24, [facility] V28) 08/02/2019 DX:Multiple sclerosis ([facility]); COMMENT: Follows with neurology (Ki) on 6 [...] PM EDT Office Visit Orthopedic Surgery - [place] [address] [phone] Joe Haynes, DPM [address] [phone] 06/13/2025 1:15 PM EST Office Visit Adult Medicine [address] [phone] Nathan Flores MD [address] [place] [address] Health Maintenance Due Date Last Done Comments [...] Encounter for long-term (current) use of medications HPV Routine 08/16/2022 from Last 3 Months or Most Recently Relevant to Health Maintenance Results * (ABNORMAL) Lipid panel with reflex to direct LDL (11/25/2024 8:56 AM EDT) Cholesterol 161 0 - 200 mg/dL LAB CHEMISTRY METHOD 11/25/2024 2:29 PM EDT [facility] Triglycerides 154(H) 0 - 150 mg/dL LAB CHEMISTRY METHOD 11/25/2024 2:29 PM EDT [facility] HDL 39(L) >=40 mg/dL LAB CHEMISTRY METHOD 11/25/2024 2:29 PM EDT [facility] LDL Calculated 91 0 - 100 mg/dL LAB CHEMISTRY METHOD 11/25/2024 2:29 PM EDT [facility] VLDL Cholesterol Ashwin 30.8 mg/dL LAB CHEMISTRY METHOD 11/25/2024 2:29 PM EDT [facility] Non HDL Chol. (LDL+VLDL) 122 <145 mg/dL LAB CHEMISTRY METHOD 11/25/2024 2:29 PM EDT [facility] Chol/HDL Ratio 4.1 0.0 - 4.4 LAB CHEMISTRY METHOD 11/25/2024 2:29 PM EDT [facility] Blood Venous blood specimen / Unknown Venipuncture / Unknown 11/25/2024 8:56 AM EDT 11/25/2024 8:56 AM EDT us Nathan Flores MD LAB BLOOD ORDERABLES Final Resu lt [facility] [address] [place] [address], * Comprehensive metabolic panel (11/25/2024 8:56 AM EDT) Sodium 142 133 - 145 mmol/L LAB CHEMISTRY METHOD 11/25/2024 2:29 PM [facility] Potassium 4.1 3.5 - 5.5 mmol/L LAB CHEMISTRY METHOD 11/25/2024 2:29 PM [facility] Chloride 108 96 - 110 mmol/L LAB CHEMISTRY METHOD 11/25/2024 2:29 PM [facility] CO2 25 21 - 32 mmol/L LAB CHEMISTRY METHOD 11/25/2024 2:29 PM [facility] Anion Gap 9 3 - 11 LAB CHEMISTRY METHOD 11/25/2024 2:29 PM [facility] Glucose 92 70 - 100 mg/dL LAB CHEMISTRY METHOD 11/25/2024 2:29 PM [facility] BUN 8 5 - 25 mg/dL LAB CHEMISTRY METHOD 11/25/2024 2:29 PM [facility] Creatinine 1.04 0.50 - 1.10 mg/dL LAB CHEMISTRY METHOD 11/25/2024 2:29 PM [facility] eGFR 70 >=60 mL/min/1. 73m2 LAB CHEMISTRY METHOD 11/25/2024 2:29 PM [facility] Comment:Calculation based on the Chronic Kidney Disease Epidemiology Collaboration (CKD-EPI) equation refit without adjustment for race. BUN/Creatinine Ratio 7.7 LAB CHEMISTRY METHOD 11/25/2024 2:29 PM [facility] Calcium 9.6 8.5 - 10.5 mg/dL LAB CHEMISTRY METHOD 11/25/2024 2:29 PM [facility] AST (SGOT) 17 10 - 42 unit/L LAB CHEMISTRY METHOD 11/25/2024 2:29 PM [facility] ALT (SGPT) 47 10 - 60 unit/L LAB CHEMISTRY METHOD 11/25/2024 2:29 PM EDT [facility] Alkaline Phosphatase 72 42 - 121 unit/L LAB CHEMISTRY METHOD 11/25/2024 2:29 PM EDT [facility] Total Protein 7.0 6.0 - 8.0 g/dL LAB CHEMISTRY METHOD 11/25/2024 2:29 PM EDT [facility] Albumin 3.9 3.2 - 5.0 g/dL LAB CHEMISTRY METHOD 11/25/2024 2:29 PM EDT [facility] Total Bilirubin 0.5 0.0 - 1.4 mg/dL LAB CHEMISTRY METHOD 11/25/2024 2:29 PM EDT [facility] Blood Venous blood specimen / Unknown Venipuncture / Unknown 11/25/2024 8:56 AM EDT 11/25/2024 8:56 AM EDT Nathan Flores MD LAB BLOOD ORDERABLES Final Resu lt [facility] [address] [place] [address], [place] [phone] * Cervical Cancer Screening: HPV (08/16/2022) [facility] Cervical Cancer Screening: HPV Negative abstracted Daysi Trevizo MD HEALTH MAINTENANCE Final Result from Last 3 Months or Most Recently Relevant to Health Maintenance Insurance [facility] MEDICARE Member Subscriber Plan / Payer (Ef fective 2023-Present) Name:ANGELIKA VAUGHAN Relation to Subscriber:Self Name:Angelika Vaughan Payer ID:[id number] Group ID:[id number] Type:Not on file Address: [address] [facility] [place] [phone] Advance Directives Documents on File Type Date Recorded Patient Speech Lang Path Expl anation Health Care Decision (hx) 01/24/2022 AD LEVY DIRECTIVE Health Care Decision (hx) 01/24/2022 AD LEVY DIRECTIVE Health Care Decision (hx) 01/24/2022 AD LEVY DIRECTIVE Health Care Decision (hx) 01/24/2022 AD LEYV DIRECTIVE Care Teams Machine Ii Coremaker Relationship Specialty Start Date End Date Nathan Flores MD [address] [place] [phone] PCP - General Internal Medicine 01/30/07
--- OUTSIDE RECORDS SUMMARY | 2025-02-10 10:37 | XMS_ITS | Encounter Summary ---
Author Organization [facility] Address [address] [place] [phone] Care Team Providers Care Hand Woodworking Sander Name Role Phone Nathan Flores MD Primary Care Provider [phone] Reason for Referral * Consultation (Routine) - Denied Specialty Diagnoses / Procedures Referred By Ozzie fry Referred To Contact Gastroenterology Diagnoses Encounter for colonoscopy due to history of adenomatous colonic polyps Nathan Flores MD [address] [place], [place] Phone: tel: fax: Otto Avila MD [address] [place] [address] Phone: tel: fax: Referral ID Status Reason Start Date Expiration Date V isits Requested Visits Authorized [id number] Denied Specialty Services Required 02/05/2025 02/05/2026 1 0 Reason for Visit * Reason Onset Date Comments Referral 02/04/2025 Encounter Details Date Type Department Care Team (Late st Contact Info) Description 02/04/2025 Telephone Adult Medicine [facility] [address] [place] [address] Leelee Mike [place] Social History Tobacco Use Types Packs/Day Years [...] on file Sexual Orientation Not on file documented as of this encounter Progress Notes * Leelee Mike [place] - 02/04/2025 1:43 PM EDT Referral Request: What insurance does the patient have today? Payor: [facility] MED[facility] / Plan: [employer] ONE CARE / Product Type: *No Product type* / Referrals cannot be processed if the insurance is not accurate. If the insurance listed above in red is NO BILLING INFORMATION FOUND FOR THIS ENCOUTNER The patients correct insurance must be obtained and registered in [facility] or their referral can not be processed. Who is calling to request this referral? patient If the caller is not the patient, what is their name? not applicable Ask the patient WHO referred them to this specialty: Patient self referred FIRST and LAST NAME of SPECIALIST PATIENT is seeing: What specialty is this? gastro DIAGNOSIS Patient is being seen for (Not a body part or a procedure): colonoscopy Have you seen this SPECIALIST for this PROBLEM/DX before? If YES, when? Yes. 3 yrs ago Have you checked REVIEW or the APPT DESK to see if this referral has already been done or has visits left? yes Is this visit: Follow Up Address of Specialist: [address] [place] [address] Phone # of Specialist: [phone] Fax #: (if applicable): Does patient have an appointment scheduled?: no Date of appointment- (including a retro-request): tbd Is this appointment related to: Not MVA, worker compensation, or surgery related documented in this encounter Plan of Treatment Upcoming Encounters Date Type Department Care Team ([facility] st Contact Info) Description 02/19/2025 1:00 PM EDT Office Visit Orthopedic Surgery - [place] [address] [phone] Joe Haynes DPAnthony [address] [phone] 06/13/2025 1:15 PM EST Office Visit [address] [place] [phone] Nathan Flores MD [address] [place] [address] Scheduled Referrals Name Type Priority Associated Diagnoses Order Schedule Ambulatory referral to Gastroenterology Outpatient Referral Routine Encounter for colonoscopy due to history of adenomatous colonic polyps 1 Occurrences starting 02/05/2025 until 02/05/2026 documented as of this encounter Visit Diagnoses Diagnosis Encounter for colonoscopy due to history of adenomatous colonic polyps- Primary documented in this encounter Care Teams Hand Woodworking Sander Relationship Specialty Start Date End Date Nathan Flores MD [address] [place] [address] PCP - General Internal Medicine 01/30/07 documented as of this encounter
== END 2025-02-10 09:04 | disposition home or self-care (01) ==
LOC: HO.LAB 09:03
PROVIDERS: PCP Internal Medicine; Visit Provider Psychiatry & Neurology Neurology
DX: G35 Multiple sclerosis (principal)
CPT/HCPCS: 36415; 80076

== ENCOUNTER 2025-02-26 09:16 | Outpatient (REF) | payer OTHER, SELFPAY ==
--- OUTSIDE RECORDS SUMMARY | 2025-02-26 10:03 | XMS_ITS | Clinical Summary ---
Author Organization 175 [facility] Address 175 [place] [address] Phone Care Team Providers Care Eyelet Maker Name Role Phone Nathan Flores MD Primary Care Provider [phone] Allergies Active Allergy Reactions Criticality Noted Date [...] for muscle spasms. 90 tablet 5 Active methocarbamoL (ROBAXIN) 750 mg tabletIndication s:Chronic low back pain, unspecified back pain laterality, unspecified whether sciatica present Take 1 tablet (750 mg total) by mouth 3 (three) times a day if needed for muscle spasms. 90 each Active cyclobenzaprine (FLEXERIL) 10 mg tablet Take 1 tablet (10 mg total) by mouth 3 (three) times a day if needed for muscle spasms. 30 tablet Active Additional Information Patient not taking.Reported on [...] deficiency 05/14/2019 Obese 05/09/2014 Bipolar affective disorder ([facility] V24, CMS/[facility] V28) 09/08/2010 Overview (02/27/2024): On meds Had ECT with good resuts Encounters Date Type Department Care Team Description 02/19/2025 1:00 PM EDT Office Visit Orthopedic Surgery - [place] 250 175 [facility] [address] [place] [address] Joe Haynes, DPM Dermatophytosis of nail (Primary Dx); Ingrowing nail 02/04/2025 Telephone Adult Medicine [address] [phone] Leelee Mike MA from Last 3 Months Immunizations Immunization Administration Dates Next Due HPV, Quadrivalent 03/08/2007 [...] COMMENT: destiny 1 Bipolar affective disorder ( [facility] V24, CMS/[facility] V28) DX:Bipolar affective disorde r (HCC); COMMENT: hosptialized in 2010 Multiple sclerosis 08/02/2019 DX:Multiple s clerosis ([facility]); COMMENT: Follows with neurology (Ki) on 6 [...] Care Team (Late st Contact Info) Description 05/19/2025 1:15 PM EST Office Visit Orthopedic Surgery [place] [address] [phone] Joe Haynes, DPM [address] [phone] 06/13/2025 1:15 PM EST Office Visit Adult Medicine [address] [phone] Nathan Flores MD [address] [place] [address] Health Maintenance Due Date Last Done Comments [...] Screening (Lipid Panel) 11/25/2029 11/25/2024, 11/02/2023, 11/02/2023 RSV Immunization Adult Patients (1 - 1-dose 75+ series) 10/30/2059 HIB Vaccines Aged Out No longer eligi [...] Routine 11/25/2024 8:56 AM EDT Hypercholesterolemi a HM HPV Routine 08/16/2022 from Last 3 Months or Most Recently Relevant to Health Maintenance Results * (ABNORMAL) Lipid panel with reflex to direct LDL (11/25/2024 8:56 AM EDT) Cholesterol 161 0 - 200 mg/dL LAB CHEMISTRY METHOD 11/25/2024 2:29 PM EDT [facility] Triglycerides 154(H) 0 - 150 mg/dL LAB CHEMISTRY METHOD 11/25/2024 2:29 PM EDT [facility] HDL 39(L) >=40 mg/dL LAB CHEMISTRY METHOD 11/25/2024 2:29 PM EDT [facility] LDL Calculated 91 0 - 100 mg/dL LAB CHEMISTRY METHOD 11/25/2024 2:29 PM EDT [facility] VLDL Cholesterol Ashwin 30.8 mg/dL LAB CHEMISTRY METHOD 11/25/2024 2:29 PM EDT [facility] Non HDL Chol. (LDL+VLDL) 122 <145 mg/dL LAB CHEMISTRY METHOD 11/25/2024 2:29 PM EDT [facility] Chol/HDL Ratio 4.1 0.0 - 4.4 LAB CHEMISTRY METHOD 11/25/2024 2:29 PM EDT [facility] Blood Venous blood specimen / Unknown Venipuncture / Unknown 11/25/2024 8:56 AM EDT 11/25/2024 8:56 AM EDT Nathan Flores MD LAB BLOOD ORDERABLES Final Resu lt [facility] [address] [place] [address], [place] [phone] * Cervical Cancer Screening: HPV (08/16/2022) Pathologist [facility] Cervical Cancer Screening: HPV Negative abstracted Daysi Provider HEALTH MAINTENANCE Final Result from Last 3 Months or Most Recently Relevant to Health Maintenance Insurance [employer] MEDICARE Member Subscriber Plan / Payer (Ef fective 2023-Present) Name:ANGELIKA VAUGHAN Relation to Subscriber:Self Name:Angelika Vaughan Payer ID:[id number] Group ID:[id number] Type:Not on file Address: [address] [facility] [place] [id number] Advance Directives Documents on File Type Date Recorded Patient Lyric Writer Expl anation Health Care Decision (hx) 01/24/2022 AD LEVY DIRECTIVE Health Care Decision (hx) 01/24/2022 AD LEVY DIRECTIVE Health Care Decision (hx) 01/24/2022 AD LEVY DIRECTIVE Health Care Decision (hx) 01/24/2022 AD LEVY DIRECTIVE Care Teams Eyelet Maker Relationship Specialty Start Date End Date Nathan Flores MD [address] [place] [phone] PCP - General Internal Medicine 01/30/07
[2025-03-02 21:54] LABS: JCV Index Value 2.32 index
== END 2025-02-26 09:17 | disposition home or self-care (01) ==
LOC: HO.LAB 09:16
PROVIDERS: PCP Internal Medicine; Visit Provider Psychiatry & Neurology Neurology
DX: Z01.84 Encounter for antibody response examination (principal); G35.D Multiple sclerosis, unspecified
CPT/HCPCS: 36415; 86711

== ENCOUNTER 2025-05-19 08:38 | Outpatient (AMB) | payer OTHER, SELFPAY ==
--- NOTE | 2025-05-19 08:46 | MHC.OFFVIS ---
Intake Visit Reasons: follow up Allergies codeine Allergy (Unknown, Verified 01/22/25 07:50) Unknown divalproex sodium (From DEPAKOTE) Allergy (Unknown, Unverified 02/13/20 16:43) SEIZURE HPI Comments Details: 39 yo woman with remitting relapsing multiple sclerosis with progressive worsening of gait. MRI of brain in 2019 revealed extensive white matter lesions, many enhancing suggestive of relapsing MS. She was started on Tecfidera, which was changed to Tysabari in September of 2021 due to further worsening of her physical status. She is presenting with ongoing bladder dysfunction. She currently uses oxybutynin for management. The patient reported difficulties controlling bladder function, relying on pull-ups. There was no additional history provided concerning onset or associated symptoms. She also reports chronic back pain which she manages with methocarbamol. Back pain occasionally affects her sleep, but otherwise, she reports sleeping well most of the time. Additionally, the patient is under medication for dyslipidemia, although the specific medication was not disclosed, she continues with a regular regimen as advised. Prior blood work indicated normal vitamin D levels, leading to cessation of vitamin D supplementation. [facility] Medical History (Updated 01/29/25 @ 09:16 by Violeta Emerson MD) Gait disorder Dementia Urinary incontinence Spastic bladder Multiple sclerosis Review of Systems Narrative - Genitourinary: Reports bladder dysfunction and use of pull-ups. Describes use of oxybutynin. - Musculoskeletal: Reports back pain. - Sleep: Reports sleep disruption due to back pain, but otherwise sleeps well. Physical Exam Neuro Other: Mental Status: Alert and oriented to person, place, and time. Normal attention. Normal spontaneous speech, fluency, and comprehension. Cranial Nerves: CN II: Visual chand full to confrontation, visual acuity intact. CN III, IV, : Pupils equal, round, reactive to light and accommodation. Extraocular movements are normal. CN V: Facial sensation is normal. CN VII: Facial movements symmetrical. CN VIII: Hearing intact to bedside conversation is normal. CN IX, X: Palate elevates symmetrically. CN XI: Shoulder shrug and head turn symmetrical. CN XII: Tongue midline without atrophy or fasciculations. She is in a wheelchair but able to get up and walk holding onto things. Extrapyramidal: Full facial expressions and blinking. No rigidity. Movements are appropriate with no tremor or abnormality. Speech: Normal; no dysarthria or tremor. Results Reviewed Results Reviewed: Laboratory Tests 02/10/25 02/26/25 09:13 09:38 Total Bilirubin 0.4 AST 24 ALT 42 H SANDRA Virus Ab Index RADHA 2.32 H Assessment & Plan Assessment & Plan (1) Multiple sclerosis: Comment: [place]CV titre at [facility] [place]: 2.05, 2022: 1.84, 2024: 2.27 MRI brain WO at [facility] [place] September 2024: No change MRI brain WO at [facility] [place] Jul 2022: no new lesion MRI brain WWO at [facility] [place] Aug 2021: ext MS type disease with some enhancement MRI brain WO at [place] in May 2019: extensive lesions suggestive of MS, many bright on DWI Code(s): G35 - Multiple sclerosis Category: Medical (2) Dementia: Code(s): F03.90 - Unspecified dementia, unspecified severity, without behavioral disturbance, psychotic disturbance, mood disturbance, and anxiety Category: Medical Qualifiers: Dementia type: associated with other underlying disease Dementia severity: moderate Dementia behavioral or psychological symptom: with other behavioral disturbance Qualified Code(s): F02.B18 - Dementia in other diseases classified elsewhere, moderate, with other behavioral disturbance (3) Spastic bladder: Code(s): N32.89 - Other specified disorders of bladder Category: Medical (4) Gait disorder: Code(s): R26.9 - Unspecified abnormalities of gait and mobility Category: Medical Plan Impression: a: Remitting relapsing MS, EDSS 5-6, moderate dementia b: Gait disorder due to MS c: Dementia related to MS d: 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 I discussed the continued use of oxybutynin for bladder control and methocarbamol for back pain management. I clarified that her current dyslipidemia management suffices, given the previous assessment of normal vitamin D levels. We agreed to continue monitoring as before, with the understanding that any changes to her condition or extreme imbalances would prompt earlier reassessment. Since the patient felt comfortable with her current regimen, no objections were raised against her established treatment plan. Orders: Orders Liver Panel Today G35 - Multiple sclerosis Vitamin D 25-OH Total Today G35 - Multiple sclerosis Medications: Refilled oxybutynin chloride ER 10 mg PO DAILY 90 tabs 0RF methocarbamol 500 mg PO BID 180 tabs 0RF Coding Level of Care Code Est Pt Level 5 (91717) Diagnoses Multiple sclerosis G35 Moderate dementia associated with other underlying disease, with other behavioral disturbance F02.B18 Dementia type: associated with other underlying disease Dementia severity: moderate Dementia behavioral or psychological symptom: with other behavioral disturbance Spastic bladder N32.89 Gait disorder R26.9
--- OUTSIDE RECORDS SUMMARY | 2025-05-19 08:57 | XMS_ITS | Clinical Summary ---
Author Organization 175 [facility] Address [address] [place] [address] Phone Care Team Providers Care Packaging Designer Name Role Phone Nathan Flores MD Primary Care Provider [phone] Allergies Active Allergy Reactions Criticality Noted Date Comments Codeine 10/07/2024 Divalproex Flushing 09/08/2010 Dog Dander Runny nose 08/09/2007 Risperidone 12/30/2021 Medications natalizumab [...] tablet 5 Active methocarbamoL (ROBAXIN) 750 mg tabletIndicatio ns:Chronic low back pain, unspecified back pain laterality, unspecified whether sciatica present Take 1 tablet (750 mg total) by mouth 3 (three) times a day if needed for muscle spasms. 90 each 5 Active cyclobenzaprine (FLEXERIL) 10 mg tablet Take 1 tablet (10 mg total) by mouth 3 (three) times a day if needed for muscle spasms. 30 tablet 5 Active Additional Information Patient not taking.Reported on 11/18/2024 atorvastatin (LIPITOR) 10 mg tablet TAKE 1 TABLET BY MOUTH 1 TIME EACH DAY. 90 tablet 1 5 Active polyethylene glycol (Golytely) 236-22.74-6.74 -5.86 gram solution Take 4L by mouth once for one dose. May substitue any PEG. Starting at 2PM the day before your procedure drink 1 8oz glasses at your own pace until you complete half of the gallon. Finish 2nd half of the gallon at 8PM. 4000 mL 5 Active bisacodyL (DULCOLAX) 5 mg EC tablet Take 2 tablets by mouth right before beginning bowel prep. See instructions provided by the office 2 tablet 5 Active Active Problems Problem Noted Date [...] Encounters Date Type Department Care Team Description 05/07/2025 12:19 PM EST Anesthesia Event [facility] Endoscopy [address] [place] [phone] Bernardo Mendoza DO 05/07/2025 10:59 AM EST - 05/07/2025 11:59 PM EST Hospital Encounter [facility] Endoscopy [address] [place] [phone] Otto Avila MD Barnes, Tyanna R, Bernardo Pulliam DO Hx of colonic polyps Discharge Disposition: Home or Self Care 02/19/2025 1:00 PM EDT Office Visit Orthopedic Surgery - [place] [address] [place] [phone] Joe Haynes, DPM Dermatophytosis of nail (Primary Dx); Ingrowing nail from Last 3 Months Immunizations Immunization Administration Dates Next Due HPV, Quadrivalent 03/08/2007 Influenza Quadravalent, MDCK , 0.5ml, preservative free (Flucelvax) 6mo and older 05/13/2019 PPD Test 05/13/2019 Tdap Tetanus diptheria acell ular pertussis (Boostrix; Adacel) 7yo and older 05/13/2019,02/15/2007 Surgical History Surgery Date Site/Laterality Comments HYSTERECTOMY Medical History Medical History Date Comments Other specified personal his tory presenting hazards to health(V15.89) DX:Other specifie d personal history presenting hazards to health(V15.89); COMMENT: destiny 1 Bipolar affective disorder ( [facility] V24, CMS/HCC V28) DX:Bipolar affective disorde r ([facility]); COMMENT: hosptialized in 2010 Multiple sclerosis 08/02/2019 DX:Multiple s clerosis ([facility]); COMMENT: Follows with neurology (Ki) [...] drink = 0.6 oz pur e alcohol) Interpersonal Safety Answer Date Record ed Physical Abuse Unrecognized value 05/07/2025 Verbal Abuse Unrecognized value 05/07/2025 Comments No Sex and Gender Information Value Date Recorded Sex Assigned at Not on file Legal Sex Female 1:32 AM EST Gender Identity Not on file Sexual Orientation Not on file Last Filed Vital Signs Vital Sign Reading Time Taken Comments Blood Pressure 111/72 05/07/2025 1:01 PM EST Pulse 68 05/07/2025 1:01 PM EST Temperature 36.8 C (98.2 F) 05/07/2025 12:41 PM EST Respiratory Rate 18 05/07/2025 1:01 PM EST Oxygen Saturation 98% 05/07/2025 1:01 PM EST Inhaled Oxygen Concentration - - Weight 82.1 kg (181 lb) 05/07/2025 11:17 AM EST Height 165.1 cm (5' 5 ) 05/07/2025 11:17 AM EST Body Mass Index 30.12 05/07/2025 11:17 AM EST Plan of Treatment Upcoming Encounters Date Type Department Care Team (Late st Contact Info) Description 05/19/2025 1:15 PM EST Office Visit Orthopedic Surgery - [place] 250 175 [facility] [address] [place] [phone] Joe Haynes, DPM 175 [facility] [address] [place] [address] 06/13/2025 1:15 PM EST Office Visit Adult Medicine [facility] [address] [place], [place] [phone] Nathan Flores MD [address] [place] [address] Health Maintenance Due Date Last Done Comments [...] Depression Screening 05/29/2024 COVID-19 Vaccine (1 - 2024-2 6 season) 2025 Influenza Vaccine (#1) 2025 05/13/2019 Cervical Cancer Screening: HPV 08/17/2027 08/16/2022 Colorectal Cancer Screening: Colonoscopy 05/07/2028 05/07/2025 DTaP,Tdap,and Td Vaccines (3 - Td or [...] on patient's age to complete this topic Goals Goal Patient Goal Type Associated Problems Recent Progress Patient-Stated? Author Autogenera adilia Goal Care Plan Autogenerated Problem No Richa Alvarez Procedures Procedure Name Priority Date/Time Associated Diagnosis Comments COLONOSCOPY Routine 05/07/2025 12:40 PM EST Hx of colonic polyps TISSUE EXAM Routine 05/07/2025 12:34 PM EST Hx of colonic polyps LIPID PANEL WITH REFLEX TO DIRECT LDL Routine 11/25/2024 8:56 AM EDT Hypercholesterolemi a HM HPV Routine 08/16/2022 from Last 3 Months or Most Recently Relevant to Health Maintenance Results * COLONOSCOPY Anesthesia - MAC; [facility] ENDOSCOPY (05/07/2025 12:40 PM EST) Anatomical Region Laterality Modality Other 05/07/2025 12:1 8 PM EST Impressions 05/07/2025 12:41 PM EST - Two 3 to 4 mm polyps at the recto-sigmoid colon and in the descending colon, removed with a cold snare. Resected and retrieved. Recommendation: - Await pathology results. - Repeat colonoscopy in 5 years for surveillance. Narrative 05/07/2025 12:41 PM EST [facility] GI Patient Name: Angelika Vaughan Procedure Date: 05/07/2025 12:18 PM Date of : 1985 Age: 39 Gender: Female Note Status: Finalized Attending MD: Otto Avila MD, Procedure Date No Time: 05/07/2025 Procedure: Colonoscopy Indications: High risk colon cancer surveillance: Personal history of colonic polyps Providers: Otto Avila MD Referring MD: Otto Avila MD Medicines: Propofol per Anesthesia Complications: No immediate complications. Estimated Blood Loss: Estimated blood loss was minimal. Procedure: Pre-Anesthesia Assessment: - ASA Grade Assessment: II - A patient with mild systemic disease. After I obtained informed consent, the scope was passed under direct vision. Throughout the procedure, the patient's blood pressure, pulse, and oxygen saturations were monitored continuously.The Colonoscope was introduced through the anus and advanced to the cecum, identified by appendiceal orifice and ileocecal valve. The colonoscopy was performed without difficulty. The patient tolerated the procedure well. The quality of the bowel preparation was good. Findings: The perianal and digital rectal examinations were normal. Two sessile polyps were found in the recto-sigmoid colon and descending colon. The polyps were 3 to 4 mm in size. These polyps were removed with a cold snare. Resection and retrieval were complete. Estimated blood loss was minimal. Procedure Code(s): --- Professional --- 15452, Colonoscopy, flexible; with removal of tumor(s), polyp(s), or other lesion(s) by snare technique Diagnosis Code(s): --- Professional --- Z86.010, Personal history of colonic polyps D12.7, Benign neoplasm of rectosigmoid junction D12.4, Benign neoplasm of descending colon CPT copyright 2020 [employer]. All rights reserved. The codes documented in this report are preliminary and upon donor recruiter review may be revised to meet current compliance requirements. Otto Avila MD 05/07/2025 12:41:05 PM This report has been signed electronically.Otto Avila MD Number of Addenda: 0 Note Initiated On: 05/07/2025 12:18 PM Scope In: Scope Out: Endoscopy Department at [facility] - [address] [place] [phone] Procedure Note Otto Avila MD - 05/07/2025 [facility] GI Patient Name: Angelika Vaughan Procedure Date: 05/07/2025 12:18 PM Date of : 1985 Age: 39 Gender: Female Note Status: Finalized Attending MD: Otto Avila MD, Procedure Date No Time: 05/07/2025 Procedure: Colonoscopy Indications: High risk colon cancer surveillance: Personalhistory of colonic polyps Providers: Otto Avila MD Referring MD: Otto Avila MD Medicines: Propofol per Anesthesia Complications: No immediate complications. Estimated Blood Loss: Estimated blood loss was minimal. Procedure: Pre-Anesthesia Assessment: - ASA Grade Assessment: II - A patient with mild systemic disease. After I obtained informed consent, the scope was passed under direct vision. Throughout theprocedure, the patient's blood pressure, pulse, and oxygen saturations were monitored continuously.The Colonoscope was introduced through the anus and advanced to the cecum, identified by appendiceal orifice and ileocecal valve. The colonoscopy was performed without difficulty. The patient tolerated the procedure well. The quality of the bowel preparation was good. Findings: The perianal and digital rectal examinations were normal. Two sessile polyps were found in the recto-sigmoid colon and descending colon. The polyps were 3 to 4mm in size. These polyps were removed with a coldsnare. Resection and retrieval were complete. Estimatedblood loss was minimal. Procedure Code(s): --- Professional --- 89749, Colonoscopy, flexible; with removal of tumor(s), polyp(s), or other lesion(s) by snare technique Diagnosis Code(s): --- Professional --- Z86.010, Personal history of colonic polyps D12.7, Benign neoplasm of rectosigmoid junction D12.4, Benign neoplasm of descending colon CPT copyright 2020 [employer]. All rights reserved. The codes documented in this report are preliminary and upon donor recruiter reviewmay be revised to meet current compliance requirements. Otto Avila MD 05/07/2025 12:41:05 PM This report has been signed electronically.Otto Avila MD Number of Addenda: 0 Note Initiated On: 05/07/2025 12:18 PM Scope In: Scope Out: Endoscopy Department at [facility] - [address] [place] [phone] IMPRESSION: - Two 3 to 4 mm polyps at the recto-sigmoid colon and in the descending colon, removed with a cold snare. Resected and retrieved. Recommendation: - Await pathology results. - Repeat colonoscopy in 5 years for surveillance. us Otto Avila MD GI~PROCEDURE ORDERABLES Final Re sult * Tissue exam (05/07/2025 12:34 PM EST) Final Diagnosis Left/Descending Colon, polyp x 2: -HYPERPLASTIC POLYPS (2) 05/08/2025 11:49 AM EST [facility] at 1149 EST Gross Description A. Large Intestine, Left/Descending Colon, polyp x 2: Labeled descending colon polyp x 2 . Received in formalin are two irregular suero mucosal tissue fragments, each measuring approximately 0.4 cm in greatest dimension, which are wrapped in paper and submitted in toto in one cassette, two pieces, multiple levels on one slide. SCOTTIE 05/08/2025 11:49 AM EST [facility] Disclaimer Unless otherwise specified, all tissue is 10% NB formalin fixed and paraffin embedded. 05/08/2025 11:49 AM [facility] Tissue Descending colon structure / Unknown 05/07/2025 12:34 PM EST 05/07/2025 3:08 PM EST Otto Avila MD LAB PATHOLOGY ORDERABLES Final R esult [facility] [address] [place] [address], [place] [phone] * (ABNORMAL) Lipid panel with reflex to direct LDL (11/25/2024 8:56 AM EDT) Cholesterol 161 0 - 200 mg/dL LAB CHEMISTRY METHOD 11/25/2024 2:29 PM EDT [facility] Triglycerides 154(H) 0 - 150 mg/dL LAB CHEMISTRY METHOD 11/25/2024 2:29 PM EDT [facility] HDL 39(L) >=40 mg/dL LAB CHEMISTRY METHOD 11/25/2024 2:29 PM EDT [facility] LDL Calculated 91 0 - 100 mg/dL LAB CHEMISTRY METHOD 11/25/2024 2:29 PM EDT [facility] VLDL Cholesterol Ashwin 30.8 mg/dL LAB CHEMISTRY METHOD 11/25/2024 2:29 PM EDT [facility] Non HDL Chol. (LDL+VLDL) 122 <145 mg/dL LAB CHEMISTRY METHOD 11/25/2024 2:29 PM EDT [facility] Chol/HDL Ratio 4.1 0.0 - 4.4 LAB CHEMISTRY METHOD 11/25/2024 2:29 PM EDT [facility] Blood Venous blood specimen / Unknown Venipuncture / Unknown 11/25/2024 8:56 AM EDT 11/25/2024 8:56 AM EDT Nathan Flores MD LAB BLOOD ORDERABLES Final Resu lt [facility] [address] [place] [address], * Cervical Cancer Screening: HPV (08/16/2022) Pathologist [facility] Cervical Cancer Screening: HPV Negative abstracted Historical Provider HEALTH MAINTENANCE Final Result from Last 3 Months or Most Recently Relevant to Health Maintenance Additional Health Concerns Active Problems Noted Date Diagnosed Date Autogenerated Problem 03/04/2025 Insurance [facility] MEDIC[facility] Member Subscriber Plan / Payer (Ef fective 2023-Present) Name:ANGELIKA VAUGHAN Relation to Subscriber:Self Name:Angelika Vaughan Payer ID:[id number] Group ID:[id number] Type:Not on file Address: [address] [facility] [place] [id number] Advance Directives Documents on File Type Date Recorded 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
== END 2025-05-19 09:06 | disposition home or self-care (01) ==
LOC: HO.HSM 08:39
PROVIDERS: PCP Internal Medicine; Visit Provider Psychiatry & Neurology Neurology
DX: G35.D Multiple sclerosis, unspecified (principal); F02.B18 Dementia in other diseases classified elsewhere, moderate, with other behavioral disturbance; N32.89 Other specified disorders of bladder; R26.9 Unspecified abnormalities of gait and mobility
CPT/HCPCS: 99215

== ENCOUNTER → 2025-05-19 08:38 | Outpatient (BNVA) | payer OTHER, SELFPAY | PROVIDERS: PCP Internal Medicine; Visit Provider Psychiatry & Neurology Neurology | DX: G35.D Multiple sclerosis, unspecified (principal); N32.89 Other specified disorders of bladder; R26.9 Unspecified abnormalities of gait and mobility | CPT/HCPCS: 99212 ==

== ENCOUNTER 2025-05-27 10:14 | Outpatient (REF) | payer OTHER, SELFPAY ==
[2025-05-27 12:09] LABS: Alanine Aminotransferase 36 U/L (0-31); Albumin Level 4.4 g/dL (3.5-5.0); Alkaline Phosphatase 56 U/L (39-117); Aspartate Amino Transferase 28 U/L (5-31); Total Protein 7.0 g/dL (6.5-8.0)
--- OUTSIDE RECORDS SUMMARY | 2025-05-27 13:34 | XMS_ITS | Clinical Summary ---
Author Organization [facility] Address [address] [place] [address] Phone Care Team Providers Care Metal Die Finisher Name Role Phone Nathan Flores MD Primary Care Provider [phone] Allergies Active Allergy Reactions Criticality Noted Date [...] Active Additional Information Patient not taking.Reported on 05/19/2025 atorvastatin (LIPITOR) 10 mg tablet TAKE 1 [...] by the office 2 tablet 5 Active ketoconazole (NIZORAL) 2 % cream Apply topically 1 (one) time each day. 30 g 2 5 Active Active Problems Problem Noted Date [...] Encounters Date Type Department Care Team Description 05/19/2025 1:15 PM EST Office Visit Orthopedic Surgery - [place] [address] [place] [address] [address] [place] [phone] Joe Haynes, DPM Dermatophytosis of nail (Primary Dx); Ingrowing nail 05/07/2025 12:19 PM EST Anesthesia Event [facility] End[facility] [address] [place] [phone] Bernardo Mendoza DO 05/07/2025 10:59 AM EST - 05/07/2025 11:59 PM EST Hospital Encounter [facility] [address] [place] [phone] Otto Avila MD Barnes, Tyanna R, Bernardo Pulliam DO Hx of colonic polyps Discharge Disposition: Home or Self Care from Last 3 Months Immunizations Immunization Administration [...] COMMENT: [facility] 1 Bipolar affective disorder ( CMS/HCC V24, CMS/HCC V28) DX:Bipolar affective disorde r (HCC); COMMENT: hosptialized in 2010 Multiple sclerosis 08/02/2019 DX:Multiple s clerosis (HCC); COMMENT: Follows with neurology (Ki) on 6 [...] Care Team (Late st Contact Info) Description 06/13/2025 1:15 PM EST Office Visit Adult Medicine [address], [place] [phone] Nathan Flores MD [address] [place], [place] 08/18/2025 1:45 PM EDT Office Visit Orthopedic Surgery - [place] [address] [phone] Joe Haynes, DPM [address] [phone] Health Maintenance Due Date Last Done Comments [...] Screening 05/07/2022 Depression Screening 05/29/2024 COVID-19 Vaccine ( - 2024-2 6 season) 2025 Influenza Vaccine [...] Maintenance Results * COLONOSCOPY Anesthesia - MAC; SP ENDOSCOPY (05/07/2025 12:40 PM EST) Anatomical Region Laterality Modality Other 05/07/2025 12:1 8 PM EST Impressions 05/07/2025 12:41 PM EST - Two 3 to 4 mm polyps at the recto-sigmoid colon and in the descending colon, removed with a cold snare. Resected and retrieved. Recommendation: - Await pathology results. - Repeat colonoscopy in 5 years for surveillance. Narrative 05/07/2025 12:41 PM EST [facility] GI Patient Name: Angelika Vaughan Procedure Date: [...] was minimal. Procedure Code(s): --- Professional --- 38232, Colonoscopy, flexible; with removal of tumor(s), polyp(s), or other lesion(s) by snare technique Diagnosis Code(s): --- Professional --- Z86.010, Personal history of colonic polyps D12.7, Benign neoplasm of rectosigmoid junction D12.4, Benign neoplasm of descending colon CPT copyright 2020 [employer] [place] [employer]. All rights reserved. The codes documented in this report are preliminary and upon rate engineer review may be revised to meet current compliance requirements. Otto Avila MD 05/07/2025 12:41:05 PM This report has been signed electronically.Otto Avila MD Number of Addenda: 0 Note Initiated On: 05/07/2025 12:18 PM Scope In: Scope Out: Endoscopy Department at [facility] - [address] [place] [phone] Procedure Note Otto Avila MD - 05/07/2025 [facility] GI Patient Name: Angelika Vaughan Procedure Date: [...] was minimal. Procedure Code(s): --- Professional --- 94838, Colonoscopy, flexible; with removal of tumor(s), polyp(s), or other lesion(s) by snare technique Diagnosis Code(s): --- Professional --- Z86.010, Personal history of colonic polyps D12.7, Benign neoplasm of rectosigmoid junction D12.4, Benign neoplasm of descending colon CPT copyright 2020 [employer] [place] [employer]. All rights reserved. The codes documented in this report are preliminary and upon rate engineer reviewmay be revised to meet current compliance requirements. Otto Avila MD 05/07/2025 12:41:05 PM This report has been signed electronically.Otto Avila MD Number of Addenda: 0 Note Initiated On: 05/07/2025 12:18 PM Scope In: Scope Out: Endoscopy Department at [facility] - [address] [place] [phone] IMPRESSION: - Two 3 to 4 mm polyps at the recto-sigmoid colon and in the descending colon, removed with a cold snare. Resected and retrieved. Recommendation: - Await pathology results. - Repeat colonoscopy in 5 years for surveillance. Otto Avila MD GI~PROCEDURE ORDERABLES Final Re sult * Tissue exam (05/07/2025 12:34 PM EST) Final Diagnosis Left/Descending Colon, polyp x 2: -HYPERPLASTIC POLYPS (2) 05/08/2025 11:49 AM EST [facility] at 1149 EST Gross Description [...] one slide. SCOTTIE 05/08/2025 11:49 AM EST [facility] Disclaimer Unless otherwise specified, all tissue is 10% NB formalin fixed and paraffin embedded. 05/08/2025 11:49 AM EST [facility] Tissue Descending colon structure / Unknown 05/07/2025 12:34 PM EST 05/07/2025 3:08 PM EST Otto Avila MD LAB PATHOLOGY ORDERABLES Final R esult [facility] [address] [place] [address], * (ABNORMAL) Lipid panel with reflex to direct LDL (11/25/2024 8:56 AM EDT) Cholesterol 161 0 - 200 mg/dL LAB CHEMISTRY METHOD 11/25/2024 2:29 PM EDT [facility] Triglycerides 154(H) 0 - 150 mg/dL LAB CHEMISTRY METHOD 11/25/2024 2:29 PM EDT [facility] HDL 39(L) >=40 mg/dL LAB CHEMISTRY METHOD 11/25/2024 2:29 PM EDT [facility] LDL Calculated 91 0 - 100 mg/dL LAB CHEMISTRY METHOD 11/25/2024 2:29 PM EDT [facility] VLDL Cholesterol Ashwin 30.8 mg/dL LAB CHEMISTRY METHOD 11/25/2024 2:29 PM EDT [facility] Non HDL Chol. (LDL+VLDL) 122 <145 mg/dL LAB CHEMISTRY METHOD 11/25/2024 2:29 PM EDT [facility] Chol/HDL Ratio 4.1 0.0 - 4.4 LAB CHEMISTRY METHOD 11/25/2024 2:29 PM EDT [facility] Blood Venous blood specimen / Unknown Venipuncture / Unknown 11/25/2024 8:56 AM EDT 11/25/2024 8:56 AM EDT Nathan Flores MD LAB BLOOD ORDERABLES Final Resu lt [facility] [address] [place] [address], * Cervical Cancer Screening: HPV (08/16/2022) Pathologist [facility] Cervical Cancer Screening: HPV Negative abstracted Historical Provider HEALTH MAINTENANCE Final Result from Last 3 Months or Most Recently Relevant to Health Maintenance Additional Health Concerns Active Problems Noted Date Diagnosed Date Autogenerated Problem 03/04/2025 Insurance [facility] MEDIC[employer] Member Subscriber Plan / Payer (Ef fective 2023-Present) Name:ANGELIKA VAUGHAN Relation to Subscriber:Self Name:Angelika Vaughan Payer ID:[id number] Group ID:[id number] Type:Not on file Address: [address] [place] [phone] Advance Directives Documents on File Type Date Recorded 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
== END 2025-05-27 10:15 | disposition home or self-care (01) ==
LOC: HO.LAB 10:14
PROVIDERS: PCP Internal Medicine; Visit Provider Psychiatry & Neurology Neurology
DX: G35.D Multiple sclerosis, unspecified (principal)
CPT/HCPCS: 36415; 80076; 82306